=== PATIENT | female | born 1935 | race Caucasian/White ===

== ENCOUNTER 2019-11-03 19:15 | Inpatient (IN) | payer MEDICARE, BC ==
[2019-11-03] MEDS: Atorvastatin Calcium 40 MG TAB PO SCH (20:53)
[2019-11-03] MEDS: Carvedilol 25 MG TAB PO SCH (20:53)
[2019-11-03] MEDS: Lantus 1000 UNITS/10 ML VIAL SC SCH (20:53)
[2019-11-03] MEDS: Montelukast Sodium 10 mg Tablet PO SCH (20:54)
[2019-11-03] MEDS: Trospium 20 MG TAB PO SCH (20:54)
[2019-11-03] MEDS: Primidone 50 MG TAB PO SCH (20:54)
[2019-11-03 22:53] VITALS: BMI 39.4
[2019-11-04] MEDS: Budesonide 0.5 MG/2 ML NEB NEB SCH ×2 (05:22→18:29)
[2019-11-04 05:41] LABS: #Basophils 0.1 thou/uL (0.0-0.2); #Eosinphils 0.3 thou/uL (0.0-0.7); #Lymphocytes 2.1 thou/uL (1.20-3.40); #Monocytes 1.2 thou/uL (0.11-0.59); #Neutrophils 4.9 thou/uL (1.40-6.50); %Basophils 0.9 % (0.0-1.0); %Eosinophils 3.2 % (0.0-10.0); %Lymphocytes 24.7 % (21.0-51.0); %Monocytes 14.2 % (0.0-10.0); %Neutrophils 57.1 % (42.0-75.0); Hemoglobin 8.1 g/dL (12.0-16.0); Mean Corpuscular HGB CONC 30.9 g/dL (32.0-36.0); Mean Corpuscular Hemoglobin 28.5 pg (27.0-31.0); Mean Corpuscular Volume 92.3 fL (78.0-98.0); Mean Platelet Volume 6.5 fL (7.4-10.4); Platelet Count 260 thou/uL (130-400); RBC Distribution Width 15.7 % (11.5-14.5); Red Blood Cell (RBC) Count 2.84 mill/uL (4.20-5.40); White Blood Cell (WBC) Count 8.6 thou/uL (4.8-10.8)
[2019-11-04 05:57] LABS: Anion Gap 11 mmol/L (10-20); BUN (Urea Nitrogen) 20 mg/dL (9.8-20.1); Calc. Creatinine Clearance 65 mL/min (70-130); Calcium 8.9 mg/dL (7.8-10.44); Carbon Dioxide 30 mmol/L (23-31); Chloride 99 mmol/L (98-107); Estimated GFR-MDRD 47; Glucose 156 mg/dL (83-110); Potassium 5.3 mmol/L (3.5-5.1); Sodium 135 mmol/L (136-145)
[2019-11-04] MEDS: Trospium 20 MG TAB PO SCH ×2 (09:30→20:56)
[2019-11-04] MEDS: Multivitamin W/ Minerals 1 TAB PO SCH (09:30)
[2019-11-04] MEDS: Venlafaxine HCl XR 75 MG CAP PO SCH (09:30)
[2019-11-04] MEDS: Allopurinol 100 MG TAB PO SCH (09:31)
[2019-11-04] MEDS: Carvedilol 25 MG TAB PO SCH ×2 (09:31→20:57)
[2019-11-04] MEDS: Amlodipine 5 MG TAB PO SCH (09:31)
[2019-11-04] MEDS: Aspirin 81 mg Enteric Coated Tablet PO SCH (09:31)
[2019-11-04] MEDS: Lantus 1000 UNITS/10 ML VIAL SC SCH ×2 (09:32→20:55)
[2019-11-04] MEDS: Polyethylene Glycol 3350 17 GM Packet PO SCH (09:36)
[2019-11-04] MEDS ORDERED: Dextrose 50% Abboject 50 ML SYRINGE SLOW IVP PRN (18:35)
[2019-11-04] MEDS ORDERED: Dextrose 5% in Water 1,000 ML IV PRN (18:35)
--- NOTE | 2019-11-04 18:56 | PRG ---
DATE OF SERVICE: 11/04/[address] Hu Yeh. 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 Denies any problem sleeping, any cough, nausea, vomiting, diarrhea, constipation, or abdominal pain. OBJECTIVE: VITAL SIGNS: Show temperature of 98.4, pulse 62, respirations 16, O2 saturations 91% on 2 L, blood pressure 143/62. LUNGS: Clear. CARDIAC: Showed regular rhythm. ABDOMEN: Soft and nontender. NEUROLOGIC: Intact. LABORATORY DATA: Accu-Cheks ranged from 142 to 164. Sodium 135, potassium 5.3, chloride 99, bicarb 30, BUN 20, creatinine down to 1.1. White count 8600, hemoglobin down from 9 to 8.1. Creatinine, however, improved, 1.6 to 1.1 also. ASSESSMENT: 1. Improving deconditioning. 2. Stable hypoxemia status post pneumonia with no bronchospasm. 3. Type 2 diabetes, controlled to goal. 4. Chronic kidney disease with acute kidney injury superimposed, improving with creatinine down to 1.1 and GFR to 47. PLAN: 1. Add Brovana to budesonide twice daily, and continue to monitor oxygen saturation and hopefully wean off. 2. Continue PT/OT. 3. Continue Levemir and Accu-Cheks with mild sliding scale to monitor and titrate and control diabetes. 4. Continue to monitor vital signs with therapy, and continue cardiac medications. Job ID: [id number]
[2019-11-04] MEDS: Montelukast Sodium 10 mg Tablet PO SCH (20:56)
[2019-11-04] MEDS: Primidone 50 MG TAB PO SCH (20:56)
[2019-11-04] MEDS: Atorvastatin Calcium 40 MG TAB PO SCH (20:57)
--- NOTE | 2019-11-04 22:45 | HP ---
Patient of Dr. Hu Yeh. HISTORY OF PRESENT ILLNESS: The patient is an 84-year-old white female, recent patient of Dr. Calvert, who is now patient of Dr. Manzano, who was admitted to [facility] for pneumonia approximately 1 month ago, stayed there several days, was discharged to [facility] and then developed a bleeding ulcer requiring readmission to [facility] with endoscopy documenting duodenal ulcer and requiring cauterization. She subsequently was discharged back to [facility] this time after several days and there apparently was seen by the penitentiary physician, Dr. Amaya, who felt to require admission back to the hospital for recurrent pneumonia and then was discharged home at the patient's request. There, subsequently she was found unresponsive for the most recent admissions documented at [facility] on October 31, found to be severely hypoglycemic despite having eaten that night and taken her regular dose of insulin. She was also found to be in acute renal failure at that time, which was felt to be due to dehydration with no evidence of hydronephrosis as her creatinine had increased from 1.7 to 4.4. She was gently hydrated however, and her creatinine came back to baseline to 1.6, and she was felt to be stable to be transferred to rehab. However, she refused extensive rehab and agreed to go to [facility] for less intensive rehab. She was eating and drinking well. She was having no chest pain or shortness of breath. She does have significant arthritis in her knees, which is limiting her ability to ambulate, but she states that she was living alone at home and maintaining her lifestyle and ADLs. She does have a history of coronary artery disease, status post stents many years ago. Denies any chest pain, shortness of breath, or palpitations. She states that she has been checking her sugar at home and it has been normal on a regular dose of insulin. MEDICATIONS: At this time include; 1. Allopurinol 100 mg daily. 2. Amlodipine 2.5 mg daily. 3. Atorvastatin 40 nightly. 4. Carvedilol 25 twice daily. 5. Lantus 10 units twice daily. 6. Singulair 10 mg daily. 7. Protonix 40 mg twice daily. 8. Primidone 50 mg nightly. 9. Trospium 20 mg twice daily. 10. Venlafaxine 150 mg daily. 11. Vitamin D 2000 units daily. 12. Handheld nebulizer with budesonide twice daily. PAST MEDICAL HISTORY: Includes the above mentioned coronary artery disease. Hypertension. Hyperlipidemia. Gout. Recent history of pneumonia. Osteoarthritis. PAST SURGICAL HISTORY: Positive for hysterectomy. FAMILY HISTORY: Negative. SOCIAL HISTORY: As mentioned above. She lives alone. She is a nonsmoker, nondrinker. Walks with a walker. REVIEW OF SYSTEMS: HEENT: She denies headaches, dizziness, change in vision or hearing, hoarseness, or dysphagia. PULMONARY: Denies cough, or sputum production. Has recent pneumonia, but now has no cough. She has been found however to be hypoxic since her admission for pneumonia and now is on chronic 1-2 L of oxygen. CARDIOVASCULAR: She denies chest pain, orthopnea, paroxysmal nocturnal dyspnea, or edema. GASTROINTESTINAL: She denies nausea, vomiting, diarrhea, constipation, or abdominal pain. She does have the above-mentioned history of asymptomatic bleeding ulcer with melena requiring 3 units of packed cells and cauterization. GENITOURINARY: Denies dysuria, hematuria, or nocturia. MUSCULOSKELETAL: Complains of pain in her knees as mentioned above. NEUROLOGIC: Denies localized numbness or tingling to arms or extremities. PHYSICAL EXAMINATION: GENERAL: The patient is an elderly obese white female, lying in bed, alert and oriented, no distress, fair historian, cannot remember her medications. VITAL SIGNS: Showed to have a temperature of 98, pulse 90, respiration 19, O2 sats 91% on 2.5 L. HEENT: Pupils are equal, round, and reactive to light and accommodation. Sclerae anicteric. Conjunctivae pale. Oral mucous membranes well hydrated. NECK: Supple. There are no nodes or masses. JVP is not elevated. LUNGS: Clear. Decreased breath sounds at bases. CARDIAC: Shows regular rhythm. No gallops or murmurs. ABDOMEN: Obese and nontender with no masses or organomegaly. SKIN/EXTREMITIES: Display no edema, clubbing, or cyanosis. NEUROLOGICAL: Shows no focal findings. LABORATORY DATA: Recently showed a white count of 7800, hematocrit 28, hemoglobin 9. Sodium 135, potassium 4.9, chloride 101, bicarb 25, BUN 32, creatinine 1.62, calcium 8.5. ASSESSMENT: The patient is an 84-year-old white female with; 1. History of deconditioning, status post multiple admissions to the hospital with inability to maintain ADLs and persistent hypoxemia that reported previously. 2. She has history also of coronary artery disease, asymptomatic. 3. Type 2 diabetes with a history of adequate control, but apparently only minimal to moderate control in the hospital. 4. Osteoarthritis of both knees limiting activity. 5. Gout, controlled on medications. 6. Hyperlipidemia, stable. 7. Anxiety and depression, stable. PLAN: Restart home medications. Continue O2 to maintain sats at 93%. Continue Accu-Cheks to monitor and titrate and control diabetes. Start PT and OT. Repeat labs in the a.m. Job ID: [id number]
[2019-11-05] MEDS: Arformoterol 15 MCG/2 ML NEB NEB SCH ×2 (05:08→17:54)
[2019-11-05] MEDS: Budesonide 0.5 MG/2 ML NEB NEB SCH ×2 (05:08→18:16)
[2019-11-05 05:53] LABS: Anion Gap 15 mmol/L (10-20); BUN (Urea Nitrogen) 17 mg/dL (9.8-20.1); Calc. Creatinine Clearance 65 mL/min (70-130); Calcium 8.8 mg/dL (7.8-10.44); Carbon Dioxide 27 mmol/L (23-31); Chloride 98 mmol/L (98-107); Estimated GFR-MDRD 47; Glucose 129 mg/dL (83-110); Potassium 4.7 mmol/L (3.5-5.1); Sodium 135 mmol/L (136-145)
[2019-11-05] MEDS: Venlafaxine HCl XR 75 MG CAP PO SCH (09:20)
[2019-11-05] MEDS: Multivitamin W/ Minerals 1 TAB PO SCH (09:20)
[2019-11-05] MEDS: Aspirin 81 mg Enteric Coated Tablet PO SCH (09:20)
[2019-11-05] MEDS: Allopurinol 100 MG TAB PO SCH (09:20)
[2019-11-05] MEDS: Amlodipine 5 MG TAB PO SCH (09:21)
[2019-11-05] MEDS: Carvedilol 25 MG TAB PO SCH ×2 (09:21→20:40)
[2019-11-05] MEDS: Trospium 20 MG TAB PO SCH ×2 (09:22→20:41)
[2019-11-05] MEDS: Polyethylene Glycol 3350 17 GM Packet PO SCH (09:23)
[2019-11-05] MEDS: Lantus 1000 UNITS/10 ML VIAL SC SCH ×2 (09:28→20:42)
[2019-11-05] MEDS: Atorvastatin Calcium 40 MG TAB PO SCH (20:40)
[2019-11-05] MEDS: Montelukast Sodium 10 mg Tablet PO SCH (20:40)
[2019-11-05] MEDS: Primidone 50 MG TAB PO SCH (20:41)
--- NOTE | 2019-11-05 22:11 | PRG ---
DATE OF SERVICE: 11/05/2019 SUBJECTIVE: The patient feels well, lying in the bed. Has had minimal therapy today, but has no dyspnea at rest. No chest pain. No shortness of breath. OBJECTIVE: VITAL SIGNS: Temperature is 96.2, pulse 75, respirations 24, O2 sats 94% on 2.5 L, blood pressure 173/76. ASSESSMENT: 1. Resolving urinary tract infection, metabolic encephalopathy. 2. Stable type 2 diabetes. 3. Severe deconditioning. 4. Resolved peptic ulcer disease. 5. Chronic diastolic heart failure. 6. Chronic kidney disease. Acute kidney injury superimposed, now back to baseline. PLAN: 1. Continue PT/OT. 2. Continue Accu-Cheks to monitor and titrate and control diabetes. 3. Continue budesonide, Brovana. 4. Continue PT/OT. 5. Continue Levemir and Accu-Cheks, mild sliding scale. 6. Review labs and therapy notes. Job ID: [id number]
[2019-11-06] MEDS: HumaLOG 300 UNITS/3 ML VIAL SC PRN (00:19)
[2019-11-06] MEDS: Arformoterol 15 MCG/2 ML NEB NEB SCH ×2 (05:41→18:09)
[2019-11-06] MEDS: Budesonide 0.5 MG/2 ML NEB NEB SCH ×2 (05:42→18:09)
[2019-11-06] MEDS: Venlafaxine HCl XR 75 MG CAP PO SCH (10:00)
[2019-11-06] MEDS: Amlodipine 5 MG TAB PO SCH (10:00)
[2019-11-06] MEDS: Allopurinol 100 MG TAB PO SCH (10:00)
[2019-11-06] MEDS: Trospium 20 MG TAB PO SCH ×2 (10:01→20:19)
[2019-11-06] MEDS: Carvedilol 25 MG TAB PO SCH ×2 (10:01→20:18)
[2019-11-06] MEDS: Aspirin 81 mg Enteric Coated Tablet PO SCH (10:01)
[2019-11-06] MEDS: Polyethylene Glycol 3350 17 GM Packet PO SCH (10:02)
[2019-11-06] MEDS: Lantus 1000 UNITS/10 ML VIAL SC SCH ×2 (10:02→20:18)
[2019-11-06] MEDS: Multivitamin W/ Minerals 1 TAB PO SCH (10:02)
[2019-11-06] MEDS: cloNIDine 0.1 MG TAB PO PRN ×2 (13:54→20:20)
--- NOTE | 2019-11-06 15:13 | PRG ---
DATE OF SERVICE: 11/06/2019 SUBJECTIVE: Ms. Browning is resting in bed and is getting her nebulizer treatment. Her blood pressure apparently was high this morning, and I ordered some p.r.n. clonidine. She denies any headaches or blurred vision. She has been working with therapy. She states her breathing is stable. Denies any fever or chills. OBJECTIVE: VITAL SIGNS: She is afebrile. Heart rate 77, respirations 18, oxygen saturation is 95% on 2 L, and blood pressure was 177/80. CARDIOVASCULAR SYSTEM: S1 and S2 plus. RESPIRATORY SYSTEM: Normal vesicular breath sounds. ABDOMEN: Soft, obese, nontender. Bowel sounds heard in all quadrants. EXTREMITIES: Without cyanosis or clubbing. Trace edema. CENTRAL NERVOUS SYSTEM: Generalized weakness. LABORATORY DATA: Blood sugars are 138, 118, 152, and 121. IMPRESSION: 1. Resolving pneumonitis. 2. Morbid obesity. 3. Resolving acute renal failure. 4. Hypertension. 5. Dyslipidemia. 6. Diabetes mellitus, type 2. 7. Deconditioning. 8. Peptic ulcer disease. 9. Depression. 10. Anxiety. 11. Coronary artery disease. PLAN: 1. Continue current medications. 2. 1800 calorie heart-healthy ADA diet. 3. Accu-Cheks with sliding scale coverage. 4. Monitor blood pressure and adjust medications as needed. 5. Clonidine 0.1 mg p.o. q.6 p.r.n. for systolic blood pressure greater than 160 or diastolic greater than 90. 6. Decubitus precautions. 7. Stress ulcer prophylaxis. She is on Protonix. 8. PlexiPulses for DVT prophylaxis. 9. Monitor respiratory status and breathing treatments as needed. 10. Routine laboratory values. 11. Discussed with the patient in detail. All questions answered. Job ID: [id number]
[2019-11-06] MEDS ORDERED: Amlodipine 5 MG TAB PO SCH (16:30)
[2019-11-06] MEDS: Atorvastatin Calcium 40 MG TAB PO SCH (20:18)
[2019-11-06] MEDS: Montelukast Sodium 10 mg Tablet PO SCH (20:19)
[2019-11-06] MEDS: Primidone 50 MG TAB PO SCH (20:19)
[2019-11-07] MEDS: Budesonide 0.5 MG/2 ML NEB NEB SCH ×2 (05:56→18:35)
[2019-11-07] MEDS: Arformoterol 15 MCG/2 ML NEB NEB SCH ×2 (05:56→18:36)
[2019-11-07] MEDS: Multivitamin W/ Minerals 1 TAB PO SCH (08:40)
[2019-11-07] MEDS: Carvedilol 25 MG TAB PO SCH ×2 (08:41→21:04)
[2019-11-07] MEDS: Venlafaxine HCl XR 75 MG CAP PO SCH (08:41)
[2019-11-07] MEDS: Trospium 20 MG TAB PO SCH ×2 (08:41→21:04)
[2019-11-07] MEDS: Aspirin 81 mg Enteric Coated Tablet PO SCH (08:41)
[2019-11-07] MEDS: Allopurinol 100 MG TAB PO SCH (08:41)
[2019-11-07] MEDS: Lantus 1000 UNITS/10 ML VIAL SC SCH ×2 (08:42→21:02)
[2019-11-07] MEDS ORDERED: Amlodipine 5 MG TAB PO SCH (09:00)
[2019-11-07] MEDS: Polyethylene Glycol 3350 17 GM Packet PO SCH (09:23)
--- NOTE | 2019-11-07 14:15 | PRG ---
DATE OF SERVICE: 11/07/2019 SUBJECTIVE: Ms. Browning is doing the same. Denies any complaints. Resting comfortably. Tolerating her amlodipine. Blood pressure continues to remain high, but she is getting the amlodipine at 9 in the morning and they are checking her blood pressure at 8 and checked once a day. I advised them to move the amlodipine to 9 p.m. and have started her on lisinopril 20 in the morning and to check her blood pressure 3 times daily. OBJECTIVE: VITAL SIGNS: She is afebrile. Heart rate 73, respirations 20, oxygen saturation 90% on 2.5 L. CARDIOVASCULAR: S1, S2 plus. RESPIRATORY: Normal vesicular breath sounds. ABDOMEN: Soft, nontender. Bowel sounds heard in all quadrants. EXTREMITIES: Without cyanosis or clubbing. Trace edema. CENTRAL NERVOUS SYSTEM: Generalized weakness. IMPRESSION: 1. Resolving pneumonitis. 2. Possible reactive airway disease. 3. Hypertension. 4. Coronary artery disease, status post stent placement. 5. Resolved acute renal failure. 6. Deconditioning. 7. Obesity. PLAN: 1. Continue current medications and add lisinopril 10 mg in the morning. Remove amlodipine at nighttime. 2. Heart healthy diet. 3. Titrate oxygen as tolerated. 4. Breathing treatments. 5. Physical therapy. 6. PlexiPulses. 7. Stress ulcer prophylaxis. 8. Routine laboratory values. 9. Discussed with the patient and nursing in detail. All questions answered. Job ID: [id number]
[2019-11-07] MEDS: Primidone 50 MG TAB PO SCH (21:04)
[2019-11-07] MEDS: Montelukast Sodium 10 mg Tablet PO SCH (21:04)
[2019-11-07] MEDS: Amlodipine 5 MG TAB PO SCH (21:04)
[2019-11-07] MEDS: Atorvastatin Calcium 40 MG TAB PO SCH (21:04)
[2019-11-08] MEDS: Budesonide 0.5 MG/2 ML NEB NEB SCH ×2 (05:43→17:32)
[2019-11-08] MEDS: Arformoterol 15 MCG/2 ML NEB NEB SCH ×2 (05:43→17:32)
[2019-11-08] MEDS: Polyethylene Glycol 3350 17 GM Packet PO SCH (08:22)
[2019-11-08] MEDS: Lisinopril 10 MG TAB PO SCH (08:23)
[2019-11-08] MEDS: Trospium 20 MG TAB PO SCH ×2 (08:24→20:35)
[2019-11-08] MEDS: Venlafaxine HCl XR 75 MG CAP PO SCH (08:24)
[2019-11-08] MEDS: Multivitamin W/ Minerals 1 TAB PO SCH (08:24)
[2019-11-08] MEDS: Carvedilol 25 MG TAB PO SCH ×2 (08:24→20:35)
[2019-11-08] MEDS: Lantus 1000 UNITS/10 ML VIAL SC SCH ×2 (08:25→20:34)
[2019-11-08] MEDS: Aspirin 81 mg Enteric Coated Tablet PO SCH (08:25)
[2019-11-08] MEDS: Allopurinol 100 MG TAB PO SCH (08:25)
--- NOTE | 2019-11-08 12:48 | PRG ---
DATE OF SERVICE: 11/08/2019 SUBJECTIVE: Ms. Browning is up in her chair doing breathing treatment. Her blood pressure is much improved. She is tolerating therapy. Discussed with nursing. Had no concerns. I advised her to start using her incentive spirometry every hour to see if we can get her off the oxygen. No family at bedside. OBJECTIVE: VITAL SIGNS: She is afebrile. Heart rate 75, respirations 18, oxygen saturation 93% on 2 L, blood pressure 150/64. CARDIOVASCULAR: S1 and S2 plus. RESPIRATORY: Normal vesicular breath sounds. ABDOMEN: Soft, obese, and nontender. Bowel sounds heard in all quadrants. EXTREMITIES: Without cyanosis or clubbing. Trace edema. CENTRAL NERVOUS SYSTEM: Generalized weakness. Otherwise, nonfocal. LABORATORY DATA: Blood sugars are 149, 113, 106, 138, 116, and 138. IMPRESSION: 1. Hypertension, much improved. 2. Acute hypoxemic respiratory failure. 3. Resolving pneumonitis. 4. Diabetes mellitus, type 2. 5. Morbid obesity. 6. Deconditioning. 7. Coronary artery disease with history of stent placement. PLAN: 1. Continue current medication. 2. 1800-calorie heart-healthy ADA. 3. Accu-Cheks with sliding scale coverage. 4. Monitor blood pressure and adjust medications as needed. 5. Titrate oxygen as tolerated. 6. Monitor respiratory status. 7. Physical therapy. 8. Routine laboratory values. Job ID: [id number]
[2019-11-08] MEDS: Acetaminophen 500 MG TAB PO PRN (14:52)
[2019-11-08] MEDS: Montelukast Sodium 10 mg Tablet PO SCH (20:35)
[2019-11-08] MEDS: Primidone 50 MG TAB PO SCH (20:35)
[2019-11-08] MEDS: Amlodipine 5 MG TAB PO SCH (20:36)
[2019-11-08] MEDS: Atorvastatin Calcium 40 MG TAB PO SCH (20:36)
[2019-11-09] MEDS: Arformoterol 15 MCG/2 ML NEB NEB SCH ×2 (05:25→17:37)
[2019-11-09 05:26] LABS: #Eosinphils 0.3 thou/uL (0.0-0.7); #Lymphocytes 2.4 thou/uL (1.20-3.40); #Monocytes 0.9 thou/uL (0.11-0.59); %Basophils 0.7 % (0.0-1.0); %Eosinophils 4.6 % (0.0-10.0); %Lymphocytes 35.5 % (21.0-51.0); %Monocytes 13.8 % (0.0-10.0); %Neutrophils 45.4 % (42.0-75.0); Hemoglobin 8.4 g/dL (12.0-16.0); Mean Corpuscular HGB CONC 31.4 g/dL (32.0-36.0); Mean Corpuscular Hemoglobin 28.4 pg (27.0-31.0); Mean Corpuscular Volume 90.3 fL (78.0-98.0); Mean Platelet Volume 6.8 fL (7.4-10.4); Platelet Count 352 thou/uL (130-400); RBC Distribution Width 15.5 % (11.5-14.5); Red Blood Cell (RBC) Count 2.94 mill/uL (4.20-5.40); White Blood Cell (WBC) Count 6.6 thou/uL (4.8-10.8)
[2019-11-09] MEDS: Budesonide 0.5 MG/2 ML NEB NEB SCH ×2 (05:26→17:36)
[2019-11-09 05:41] LABS: Anion Gap 14 mmol/L (10-20); BUN (Urea Nitrogen) 16 mg/dL (9.8-20.1); Calc. Creatinine Clearance 68 mL/min (70-130); Calcium 8.8 mg/dL (7.8-10.44); Carbon Dioxide 28 mmol/L (23-31); Chloride 97 mmol/L (98-107); Estimated GFR-MDRD 49; Glucose 117 mg/dL (83-110); Potassium 4.1 mmol/L (3.5-5.1); Sodium 135 mmol/L (136-145)
[2019-11-09] MEDS: Venlafaxine HCl XR 75 MG CAP PO SCH (07:58)
[2019-11-09] MEDS: Trospium 20 MG TAB PO SCH ×2 (07:59→21:26)
[2019-11-09] MEDS: Multivitamin W/ Minerals 1 TAB PO SCH (07:59)
[2019-11-09] MEDS: Aspirin 81 mg Enteric Coated Tablet PO SCH (07:59)
[2019-11-09] MEDS: Allopurinol 100 MG TAB PO SCH (07:59)
[2019-11-09] MEDS: Carvedilol 25 MG TAB PO SCH ×2 (07:59→21:25)
[2019-11-09] MEDS: Lisinopril 10 MG TAB PO SCH (07:59)
[2019-11-09] MEDS: Lantus 1000 UNITS/10 ML VIAL SC SCH ×2 (08:00→21:27)
[2019-11-09] MEDS: Polyethylene Glycol 3350 17 GM Packet PO SCH (08:00)
--- NOTE | 2019-11-09 13:12 | PRG ---
DATE OF SERVICE: 11/09/2019 SUBJECTIVE: Ms. Browning is doing the same. She is up in her chair, and she apparently has been using her incentive spirometer, but is able to 700 mL. She is still having fluctuating blood pressure, but that is more with exertion. She is now on 3 L of oxygen. PHYSICAL EXAMINATION: VITAL SIGNS: Blood pressure after her medicines is 147/76, pulse 71, and respirations 18. CARDIOVASCULAR SYSTEM: S1 and S2 plus. RESPIRATORY SYSTEM: Normal vesicular breath sounds. ABDOMEN: Soft, obese, nontender. Bowel sounds heard in all quadrants. EXTREMITIES: Without cyanosis or clubbing. CENTRAL NERVOUS SYSTEM: Awake and responsive. Grossly nonfocal. LABORATORY VALUES: Sodium 135, potassium 4.1, BUN and creatinine 16 and 1.06. Blood sugars are 138, 125, 155, 117, and 140. BNP is normal at 89.5. White count is 6.6, H and H are 8.4 and 26.6. IMPRESSION: 1. Acute hypoxemic respiratory failure. 2. Improving pneumonitis. 3. Morbid obesity. 4. Possible obesity hypoventilation. 5. Diabetes mellitus, type 2. 6. Coronary artery disease. 7. Deconditioning. PLAN: 1. Continue current medications. 2. 1800-calorie heart healthy ADA diet. 3. Accu-Cheks with sliding scale coverage. 4. Reinforced complaints with incentive spirometry. 5. Continue to monitor blood pressure and adjust medications. 6. Physical Therapy. 7. Routine laboratory values. 8. Discussed with nursing and patient. All questions answered. Job ID: [id number] MTDD
[2019-11-09] MEDS: Primidone 50 MG TAB PO SCH (21:25)
[2019-11-09] MEDS: Amlodipine 5 MG TAB PO SCH (21:26)
[2019-11-09] MEDS: Montelukast Sodium 10 mg Tablet PO SCH (21:26)
[2019-11-09] MEDS: Atorvastatin Calcium 40 MG TAB PO SCH (21:28)
[2019-11-10] MEDS: Arformoterol 15 MCG/2 ML NEB NEB SCH ×2 (06:26→17:56)
[2019-11-10] MEDS: Budesonide 0.5 MG/2 ML NEB NEB SCH ×2 (06:26→17:58)
--- NOTE | 2019-11-10 08:54 | PRG ---
DATE OF SERVICE: 11/10/2019 SUBJECTIVE: Ms. Browning is doing the same, denies any complaints, staying compliant with her incentive spirometry per nursing. She is tolerating therapy. OBJECTIVE: VITAL SIGNS: She is afebrile, heart rate 72, respirations 18, oxygen saturation 93% on 3 L, and blood pressure 141/59. CARDIOVASCULAR: S1 and S2 plus. RESPIRATORY: Normal vesicular breath sounds. ABDOMEN: Soft and nontender. Obese. Bowel sounds heard in all quadrants. EXTREMITIES: Without cyanosis or clubbing. Trace edema. CENTRAL NERVOUS SYSTEM: Generalized weakness, otherwise nonfocal. IMPRESSION: 1. Resolving pneumonitis. 2. Acute hypoxemic respiratory failure. 3. Morbid obesity. 4. Diabetes mellitus type 2. 5. Coronary artery disease. 6. Hypertension, much improved. 7. Improving deconditioning. PLAN: 1. Continue current medications. 2. 1800 calorie heart healthy ADA diet. 3. Accu-Chek with sliding scale coverage. 4. DVT prophylaxis with PlexiPulse. 5. Decubitus precautions. 6. Stress ulcer prophylaxis. 7. Reinforced compliance with incentive spirometry and titrate oxygen as tolerated. Job ID: [id number]
[2019-11-10] MEDS: Venlafaxine HCl XR 75 MG CAP PO SCH (09:04)
[2019-11-10] MEDS: Carvedilol 25 MG TAB PO SCH ×2 (09:04→20:36)
[2019-11-10] MEDS: Multivitamin W/ Minerals 1 TAB PO SCH (09:05)
[2019-11-10] MEDS: Trospium 20 MG TAB PO SCH ×2 (09:05→20:36)
[2019-11-10] MEDS: Allopurinol 100 MG TAB PO SCH (09:05)
[2019-11-10] MEDS: Lantus 1000 UNITS/10 ML VIAL SC SCH ×2 (09:05→20:45)
[2019-11-10] MEDS: Aspirin 81 mg Enteric Coated Tablet PO SCH (09:05)
[2019-11-10] MEDS: Lisinopril 10 MG TAB PO SCH (09:06)
[2019-11-10] MEDS: Polyethylene Glycol 3350 17 GM Packet PO SCH (09:12)
[2019-11-10] MEDS: Atorvastatin Calcium 40 MG TAB PO SCH (20:36)
[2019-11-10] MEDS: Montelukast Sodium 10 mg Tablet PO SCH (20:36)
[2019-11-10] MEDS: Primidone 50 MG TAB PO SCH (20:36)
[2019-11-10] MEDS: Amlodipine 5 MG TAB PO SCH (20:36)
[2019-11-11] MEDS: Arformoterol 15 MCG/2 ML NEB NEB SCH ×2 (05:32→18:11)
[2019-11-11] MEDS: Budesonide 0.5 MG/2 ML NEB NEB SCH ×2 (05:50→18:11)
[2019-11-11] MEDS: Carvedilol 25 MG TAB PO SCH ×2 (09:11→20:45)
[2019-11-11] MEDS: Trospium 20 MG TAB PO SCH ×2 (09:11→20:45)
[2019-11-11] MEDS: Venlafaxine HCl XR 75 MG CAP PO SCH (09:11)
[2019-11-11] MEDS: Lantus 1000 UNITS/10 ML VIAL SC SCH ×2 (09:11→20:46)
[2019-11-11] MEDS: Allopurinol 100 MG TAB PO SCH (09:12)
[2019-11-11] MEDS: Lisinopril 10 MG TAB PO SCH (09:12)
[2019-11-11] MEDS: Aspirin 81 mg Enteric Coated Tablet PO SCH (09:12)
[2019-11-11] MEDS: Polyethylene Glycol 3350 17 GM Packet PO SCH (09:12)
[2019-11-11] MEDS: Multivitamin W/ Minerals 1 TAB PO SCH (09:12)
[2019-11-11] MEDS ORDERED: Lisinopril 10 MG TAB PO SCH (15:00)
--- NOTE | 2019-11-11 20:18 | PRG ---
DATE OF SERVICE: 11/11/2019 SUBJECTIVE: Ms. Browning is up in her chair and just had her hair and nails done. She apparently still having episodes of spike in her blood pressure, which is limiting Therapy working with her. I am going to leave a note for Therapy to tell them to continue working with her or give her about 30-second rest and then start working with her again, because I think her spike in blood pressure is more due to deconditioning. I will also increase her lisinopril today and then possibly her amlodipine tomorrow. I had a long discussion with her daughter, Jessica, over the telephone and all questions answered. OBJECTIVE: VITAL SIGNS: The patient is afebrile, heart rate 72, respirations 20, oxygen saturation 96% on 3 L, and blood pressure 165/70. CARDIOVASCULAR: S1 and S2 plus. RESPIRATORY: Normal vesicular breath sounds. ABDOMEN: Soft, obese, nontender. Bowel sounds heard in all quadrants. EXTREMITIES: Without cyanosis or clubbing. Trace edema. CENTRAL NERVOUS SYSTEM: Awake and responsive, generalized weakness. LABORATORY DATA: Blood sugars are 117, 175, 164, 131, and 127. IMPRESSION: 1. Resolving pneumonitis. 2. Acute hypoxemic respiratory failure. 3. History of sleep apnea. Daughter states that patient had a sleep study and was told she has sleep apnea, but did not get the CPAP. 4. Hypertension. 5. Deconditioning. 6. Diabetes mellitus, type 2. PLAN: 1. 1800 calorie heart healthy ADA diet. 2. Accu-Cheks with sliding scale coverage. 3. Monitor blood pressure and adjust medications. 4. Increase lisinopril to 20 daily. 5. Physical therapy. 6. Monitor heart rate and rhythm. 7. Discuss with patient and nursing as well as daughter in detail. Job ID: [id number]
[2019-11-11] MEDS: Amlodipine 5 MG TAB PO SCH (20:44)
[2019-11-11] MEDS: Atorvastatin Calcium 40 MG TAB PO SCH (20:44)
[2019-11-11] MEDS: Montelukast Sodium 10 mg Tablet PO SCH (20:45)
[2019-11-11] MEDS: Primidone 50 MG TAB PO SCH (20:45)
[2019-11-12] MEDS: Budesonide 0.5 MG/2 ML NEB NEB SCH ×2 (05:46→17:37)
[2019-11-12] MEDS: Arformoterol 15 MCG/2 ML NEB NEB SCH ×2 (05:46→17:37)
[2019-11-12] MEDS ORDERED: Lisinopril 10 MG TAB PO SCH (09:00)
[2019-11-12] MEDS: Venlafaxine HCl XR 75 MG CAP PO SCH (09:12)
[2019-11-12] MEDS: Aspirin 81 mg Enteric Coated Tablet PO SCH (09:13)
[2019-11-12] MEDS: Trospium 20 MG TAB PO SCH ×2 (09:13→21:24)
[2019-11-12] MEDS: Multivitamin W/ Minerals 1 TAB PO SCH (09:13)
[2019-11-12] MEDS: Polyethylene Glycol 3350 17 GM Packet PO SCH (09:13)
[2019-11-12] MEDS: Carvedilol 25 MG TAB PO SCH ×2 (09:13→21:22)
[2019-11-12] MEDS: Lantus 1000 UNITS/10 ML VIAL SC SCH ×2 (09:13→21:22)
[2019-11-12] MEDS: Allopurinol 100 MG TAB PO SCH (09:13)
[2019-11-12] MEDS ORDERED: Amlodipine 5 MG TAB PO SCH (14:40)
--- NOTE | 2019-11-12 15:40 | PRG ---
DATE OF SERVICE: 11/12/2019 SUBJECTIVE: Ms. Browning apparently went around the nurse's station with rolling her wheelchair. Her family is with her. Encouraged her to do more. Adjusting her blood pressure medicines. OBJECTIVE: VITAL SIGNS: This morning, her pulse was 72, respirations 20, oxygen saturation 96% on 3 L. Blood pressure was 179/78, but after her medicines, it was 165/70. CARDIOVASCULAR SYSTEM: S1 and S2 plus. RESPIRATORY SYSTEM: Normal vesicular breath sounds. ABDOMEN: Soft, nontender, obese. Bowel sounds heard in all quadrants. EXTREMITIES: Without cyanosis or clubbing. CENTRAL NERVOUS SYSTEM: Awake and responsive. Generalized weakness, otherwise nonfocal. IMPRESSION: 1. Resolving pneumonitis. 2. Possible obstructive sleep apnea. 3. Hypertension. 4. Acute hypoxemic respiratory failure. 5. Deconditioning. 6. Diabetes mellitus, type 2. PLAN: 1. Increase amlodipine to 10 mg at night. 2. Continue other medications. 3. 1800-calorie heart-healthy ADA diet. 4. Accu-Cheks with sliding scale coverage. 5. Outpatient sleep study. 6. Physical therapy. 7. Discussed with the patient and family in detail and all questions answered. Job ID: [id number]
[2019-11-12] MEDS: Amlodipine 5 MG TAB PO SCH (21:21)
[2019-11-12] MEDS: Montelukast Sodium 10 mg Tablet PO SCH (21:21)
[2019-11-12] MEDS: Atorvastatin Calcium 40 MG TAB PO SCH (21:22)
[2019-11-12] MEDS: Primidone 50 MG TAB PO SCH (21:24)
[2019-11-12] MEDS ORDERED: diphenhydrAMINE 25 MG CAP PO SCH (21:30)
[2019-11-12] MEDS: Hydrocortisone 1% Cream 30 GM TUBE TOP PRN (21:45)
[2019-11-13] MEDS ORDERED: Budesonide 0.25 MG/2 ML NEB ONE (05:26)
[2019-11-13] MEDS ORDERED: Budesonide 0.5 MG/2 ML NEB ONE (05:27)
[2019-11-13] MEDS: Budesonide 0.5 MG/2 ML NEB NEB SCH ×2 (05:54→18:15)
[2019-11-13] MEDS: Lisinopril 10 MG TAB PO SCH (05:54)
[2019-11-13] MEDS: Arformoterol 15 MCG/2 ML NEB NEB SCH ×2 (05:55→18:30)
[2019-11-13] MEDS: Multivitamin W/ Minerals 1 TAB PO SCH (09:29)
[2019-11-13] MEDS: Allopurinol 100 MG TAB PO SCH (09:29)
[2019-11-13] MEDS: Aspirin 81 mg Enteric Coated Tablet PO SCH (09:30)
[2019-11-13] MEDS: Trospium 20 MG TAB PO SCH ×2 (09:30→20:58)
[2019-11-13] MEDS: Venlafaxine HCl XR 75 MG CAP PO SCH (09:30)
[2019-11-13] MEDS: Carvedilol 25 MG TAB PO SCH ×2 (09:31→20:58)
[2019-11-13] MEDS: Lantus 1000 UNITS/10 ML VIAL SC SCH ×2 (09:33→20:53)
[2019-11-13] MEDS: Polyethylene Glycol 3350 17 GM Packet PO SCH (09:35)
[2019-11-13] MEDS: Hydrocortisone 1% Cream 30 GM TUBE TOP PRN ×2 (11:55→20:53)
--- NOTE | 2019-11-13 14:26 | PRG ---
DATE OF SERVICE: 11/13/2019 SUBJECTIVE: Ms. Browning is doing well. She is down to 2 L of oxygen. Advised nursing to continue to titrate it down as long as her room air saturation is greater than 92%. The patient states that she is doing reasonably well with therapy, and her limiting factor is mainly her knee pain. She is having some BP spike, but I think that is more related to her deconditioning and her pain rather than a primary cardiovascular issue. She does have apparently sleep apnea, which has not been treated, and family is going to arrange for outpatient sleep study. Discussed with therapy, and they state she is able to walk 100 feet without stopping to rest and then after rest, she is able to walk another 100 feet, and they state that probably in the next couple of days, she should be ready to go home. She does live home alone, and the patient states that she had [facility] and so, we will make sure Case Management refers the patient. She has a followup appointment with her PCP on , and she is hoping she can make it. OBJECTIVE: VITAL SIGNS: She is afebrile, heart rate 76, respirations 20, oxygen saturation 94% on 2 L, and blood pressure 145/65. CARDIOVASCULAR SYSTEM: S1 and S2 plus. RESPIRATORY SYSTEM: Normal vesicular breath sounds. ABDOMEN: Soft, obese, nontender. Bowel sounds heard in all quadrants. EXTREMITIES: Without cyanosis or clubbing. Trace edema. DJD to knee. CENTRAL NERVOUS SYSTEM: Improving deconditioning. LABORATORY DATA: Blood sugars are 128, 184, 127, and 131. IMPRESSION: 1. Resolved pneumonitis. 2. Acute hypoxemic respiratory failure, improving. 3. Significant deconditioning with slow improvement. 4. Hypertension. 5. Osteoarthritis. 6. Diabetes mellitus, type 2. PLAN: 1. Continue current medications. 2. Monitor blood pressure. 3. Heart healthy, ADA diet. 4. Accu-Cheks with sliding scale coverage. 5. Titrate oxygen. 6. Physical therapy. 7. Discharge planning. Job ID: [id number]
[2019-11-13] MEDS: Amlodipine 5 MG TAB PO SCH (20:57)
[2019-11-13] MEDS: Atorvastatin Calcium 40 MG TAB PO SCH (20:57)
[2019-11-13] MEDS: Primidone 50 MG TAB PO SCH (20:57)
[2019-11-13] MEDS: Montelukast Sodium 10 mg Tablet PO SCH (20:58)
[2019-11-14] MEDS: Lisinopril 10 MG TAB PO SCH (05:31)
[2019-11-14] MEDS: Arformoterol 15 MCG/2 ML NEB NEB SCH ×2 (05:32→17:34)
[2019-11-14] MEDS: Budesonide 0.5 MG/2 ML NEB NEB SCH ×2 (05:34→17:34)
[2019-11-14] MEDS: Allopurinol 100 MG TAB PO SCH (08:37)
[2019-11-14] MEDS: Aspirin 81 mg Enteric Coated Tablet PO SCH (08:37)
[2019-11-14] MEDS: Multivitamin W/ Minerals 1 TAB PO SCH (08:37)
[2019-11-14] MEDS: Venlafaxine HCl XR 75 MG CAP PO SCH (08:37)
[2019-11-14] MEDS: Carvedilol 25 MG TAB PO SCH ×2 (08:37→21:06)
[2019-11-14] MEDS: Trospium 20 MG TAB PO SCH ×2 (08:37→21:06)
[2019-11-14] MEDS: Lantus 1000 UNITS/10 ML VIAL SC SCH ×2 (08:38→21:08)
[2019-11-14] MEDS: Polyethylene Glycol 3350 17 GM Packet PO SCH (08:40)
--- NOTE | 2019-11-14 14:13 | PRG ---
DATE OF SERVICE: 11/14/2019 SUBJECTIVE: Ms. Browning has been off her oxygen. She is seen on her way to her case conference. Discussed with therapy and they state that the patient should be ready to go in the next day or two. The patient apparently had [facility] and I have already consulted Case Management. Family was supposed to come to the case conference, but nursing states that no one has showed up. nursing program coordinator was supposed to inform them. OBJECTIVE: VITAL SIGNS: She is afebrile, heart rate 74, respirations 18, oxygen saturation 92%, and blood pressure 135/63. CARDIOVASCULAR SYSTEM: S1 and S2 plus. RESPIRATORY SYSTEM: Normal vesicular breath sounds. ABDOMEN: Soft and nontender. Bowel sounds heard in all quadrants. EXTREMITIES: Without cyanosis or clubbing. DJD knees. CENTRAL NERVOUS SYSTEM: Improving deconditioning. IMPRESSION: 1. Resolved pneumonitis. 2. Resolved acute hypoxemic respiratory failure. 3. Osteoarthritis. 4. Improving deconditioning. 5. Hypertension, better controlled. PLAN: 1. Continue current medications. 2. Heart healthy diet. 3. DVT prophylaxis. 4. Physical therapy. 5. Discharge planning. 6. Anticipate discharge on . Discussed with the patient. No family at bedside. Job ID: [id number]
[2019-11-14] MEDS: HumaLOG 300 UNITS/3 ML VIAL SC PRN (17:35)
[2019-11-14] MEDS: Primidone 50 MG TAB PO SCH (21:06)
[2019-11-14] MEDS: Amlodipine 5 MG TAB PO SCH (21:06)
[2019-11-14] MEDS: Atorvastatin Calcium 40 MG TAB PO SCH (21:06)
[2019-11-14] MEDS: Montelukast Sodium 10 mg Tablet PO SCH (21:06)
[2019-11-15] MEDS: Budesonide 0.5 MG/2 ML NEB NEB SCH ×2 (05:43→18:08)
[2019-11-15] MEDS: Arformoterol 15 MCG/2 ML NEB NEB SCH ×2 (05:56→18:09)
[2019-11-15] MEDS: Lisinopril 10 MG TAB PO SCH (05:57)
[2019-11-15] MEDS: Polyethylene Glycol 3350 17 GM Packet PO SCH (08:49)
[2019-11-15] MEDS: Carvedilol 25 MG TAB PO SCH ×2 (08:50→20:33)
[2019-11-15] MEDS: Trospium 20 MG TAB PO SCH ×2 (08:50→20:34)
[2019-11-15] MEDS: Multivitamin W/ Minerals 1 TAB PO SCH (08:50)
[2019-11-15] MEDS: Aspirin 81 mg Enteric Coated Tablet PO SCH (08:50)
[2019-11-15] MEDS: Allopurinol 100 MG TAB PO SCH (08:51)
[2019-11-15] MEDS: Lantus 1000 UNITS/10 ML VIAL SC SCH ×2 (08:53→20:33)
[2019-11-15] MEDS: Venlafaxine HCl XR 75 MG CAP PO SCH (08:59)
--- NOTE | 2019-11-15 13:16 | PRG ---
DATE OF SERVICE: 11/15/2019 SUBJECTIVE: Ms. Browning is doing well. She remains off her oxygen. She is happy with her progress. Anticipated discharge is tomorrow. Denies any concerns or questions. She has a followup appointment with her PCP tomorrow afternoon. No family at bedside. OBJECTIVE: VITAL SIGNS: She is afebrile, heart rate 74, respirations 18, oxygen saturation 93% on room air, and blood pressure is 137/72 and even with therapy, it went up only to 147/67. CARDIOVASCULAR SYSTEM: S1 and S2 plus. RESPIRATORY SYSTEM: Normal vesicular breath sounds. ABDOMEN: Soft, obese, and nontender. Bowel sounds heard in all quadrants. EXTREMITIES: Without cyanosis or clubbing. CENTRAL NERVOUS SYSTEM: Improved deconditioning. LABORATORY DATA: Blood sugars are 147, 162, 199, 148, and 143. IMPRESSION: 1. Resolved acute hypoxemic respiratory failure. 2. Resolved pneumonitis. 3. Improving deconditioning. 4. Hypertension, much better controlled. 5. Osteoarthritis. 6. Dyslipidemia. 7. Diabetes mellitus, type 2. 8. Overactive bladder. 9. Depression and anxiety. 10. Coronary artery disease. 11. Gout, complicated. PLAN: 1. Continue current medications. 2. Send new prescriptions to [facility] on [facility]. 3. Continue heart healthy ADA diet. 4. Accu-Cheks with sliding scale coverage. 5. DVT and stress ulcer prophylaxis. 6. Decubitus precaution. 7. Anticipate discharge tomorrow. [facility] has already been informed. All orders to go to her primary care physician. Job ID: [id number]
[2019-11-15] MEDS: HumaLOG 300 UNITS/3 ML VIAL SC PRN (18:21)
[2019-11-15] MEDS: Amlodipine 5 MG TAB PO SCH (20:32)
[2019-11-15] MEDS: Atorvastatin Calcium 40 MG TAB PO SCH (20:33)
[2019-11-15] MEDS: Montelukast Sodium 10 mg Tablet PO SCH (20:33)
[2019-11-15] MEDS: Primidone 50 MG TAB PO SCH (20:34)
[2019-11-16] MEDS: Acetaminophen 500 MG TAB PO PRN (01:02)
[2019-11-16] MEDS: Lisinopril 10 MG TAB PO SCH (05:38)
[2019-11-16] MEDS: Budesonide 0.5 MG/2 ML NEB NEB SCH (05:38)
[2019-11-16] MEDS: Arformoterol 15 MCG/2 ML NEB NEB SCH (05:38)
[2019-11-16 08:01] VITALS: TEMP 98.2
[2019-11-16] MEDS: Lantus 1000 UNITS/10 ML VIAL SC SCH (09:12)
[2019-11-16] MEDS: Carvedilol 25 MG TAB PO SCH (09:13)
[2019-11-16] MEDS: Multivitamin W/ Minerals 1 TAB PO SCH (09:13)
[2019-11-16] MEDS: Allopurinol 100 MG TAB PO SCH (09:13)
[2019-11-16] MEDS: Aspirin 81 mg Enteric Coated Tablet PO SCH (09:13)
[2019-11-16] MEDS: Polyethylene Glycol 3350 17 GM Packet PO SCH (09:14)
[2019-11-16] MEDS: Trospium 20 MG TAB PO SCH (09:14)
[2019-11-16] MEDS: Venlafaxine HCl XR 75 MG CAP PO SCH (09:14)
[2019-11-16 11:14] VITALS: BP 132/63
--- NOTE | 2019-11-17 02:59 | DIS ---
DATE OF ADMISSION: 11/03/2019 DATE OF DISCHARGE: 11/16/2019 PRINCIPAL DIAGNOSIS: Resolved acute hypoxemic respiratory failure. SECONDARY DIAGNOSES: 1. Resolved pneumonitis. 2. Hypertension. 3. Dyslipidemia. 4. Coronary artery disease. 5. Diabetes mellitus type 2. 6. Gastroesophageal reflux disease. 7. Depression and anxiety. 8. Overactive bladder. 9. Gout. 10. Osteoarthritis. There is no diagnosis of asthma, but patient was sent here on budesonide and Brovana DuoNeb and advised her to follow up with her PCP and to get worked up for asthma before getting refills on those medications as I do not have a diagnosis to support it. COMPLICATIONS: None. ADVERSE REACTIONS: None. PROCEDURES: None. CONSULTATIONS: Physical Therapy and Occupational Therapy. HOSPITAL COURSE: The patient was admitted on 11/03/[address] Christopher after being in the hospital multiple times recently with hypoxemia and inability to maintain ADLs. She was felt to have pneumonitis and was treated. She also was started on oxygen. Her blood pressures have been running high and she was started on amlodipine 2.5 just before discharge to us here. Here, I had to make significant changes to her blood pressure medications to get it under control. She also has slowly progressed with therapy. She has been titrated off her oxygen. She has deemed to have reached enough independence with her activities that she is safe to go home. She has a followup appointment with her PCP this afternoon. PHYSICAL EXAMINATION: VITAL SIGNS: On the day of discharge, she is afebrile. Heart rate is 82, respirations 18, oxygen saturation 93% on room air, blood pressure was 132/63. CARDIOVASCULAR SYSTEM: S1 and S2 plus. RESPIRATORY SYSTEM: Normal vesicular breath sounds with decreased air entry in the bases. ABDOMEN: Soft, obese, nontender. Bowel sounds heard in all quadrants. EXTREMITIES: Without cyanosis, clubbing, or trace edema. CENTRAL NERVOUS SYSTEM: Awake and responsive. Cranial nerves 2 through 12 intact. Generalized weakness. LABORATORY DATA: Blood sugars are 143, 153, 155, 129, and 148. DISCHARGE MEDICATIONS: The new medications are: 1. Amlodipine 10 mg at bedtime. 2. DuoNeb 3 mL q.i.d. p.r.n. 3. Lisinopril 20 mg daily. All these three medicines were sent to [facility] on [facility] which is her pharmacy. Her other medications that she is to continue are: 1. Tylenol 1 g q.6h p.r.n. 2. Allopurinol 100 mg daily. 3. Aspirin 81 mg daily. 4. Atorvastatin 40 mg daily. 5. Carvedilol 25 mg b.i.d. 6. Pristiq 100 mg daily. 7. Vitamin D3 of 2000 units daily. 8. Lantus 10 units b.i.d. 9. Lisinopril 20 mg daily. 10. Singulair 10 mg daily. 11. Multivitamin one tablet daily. 12. Pantoprazole 40 mg b.i.d. 13. VESIcare 10 mg daily. 1800 calorie heart healthy ADA diet. Home health has been arranged and diet will be managed by her PCP. She is to monitor her blood sugars at home. She is to follow up with her PCP. She has an appointment this afternoon. She is to call us with any questions or concerns. No family at bedside. Total time spent on this discharge is 35 minutes. Job ID: [id number]
== END 2019-11-16 14:57 | disposition home health service (06) | DRG 189 ==
LOC: NAV ACUTE 19:15
PROVIDERS: ADMIT Internal Medicine; ATTEND Internal Medicine
DX: J96.01 Acute respiratory failure with hypoxia (principal); G93.41 Metabolic encephalopathy; J18.9 Pneumonia, unspecified organism; N17.9 Acute kidney failure, unspecified; I13.0 Hypertensive heart and chronic kidney disease with heart failure and stage 1 through stage 4 chronic kidney disease, or unspecified chronic kidney disease; I50.32 Chronic diastolic (congestive) heart failure; N39.0 Urinary tract infection, site not specified; I25.10 Atherosclerotic heart disease of native coronary artery without angina pectoris; Z95.5 Presence of coronary angioplasty implant and graft; Z79.899 Other long term (current) drug therapy; Z90.710 Acquired absence of both cervix and uterus; R53.81 Other malaise; M17.0 Bilateral primary osteoarthritis of knee; E78.5 Hyperlipidemia, unspecified; F41.9 Anxiety disorder, unspecified; F32.9 Major depressive disorder, single episode, unspecified; E11.22 Type 2 diabetes mellitus with diabetic chronic kidney disease; N18.9 Chronic kidney disease, unspecified; E66.01 Morbid (severe) obesity due to excess calories; Z68.39 Body mass index [BMI] 39.0-39.9, adult; Z88.0 Allergy status to penicillin; Z91.048 Other nonmedicinal substance allergy status; Z88.8 Allergy status to other drugs, medicaments and biological substances; M10.9 Gout, unspecified; Z79.4 Long term (current) use of insulin; G47.33 Obstructive sleep apnea (adult) (pediatric)
CPT/HCPCS: 36415; 36416; 80048; 83880; 85025; J1815; J7620; J7626; Q0163

== ENCOUNTER 2020-10-31 14:29 | Inpatient (IN) | payer MEDICARE, BC ==
[2020-10-31] MEDS ORDERED: Acetaminophen 500 MG TAB PO PRN ×2 (17:41→17:51)
[2020-10-31] MEDS ORDERED: Dextrose 50% Abboject 50 ML SYRINGE SLOW IVP PRN (17:52)
[2020-10-31] MEDS ORDERED: Primidone 50 MG TAB PO SCH (21:00)
[2020-10-31] MEDS ORDERED: traZODone HCl 50 MG TAB PO SCH (21:00)
[2020-10-31] MEDS ORDERED: Carvedilol 25 MG TAB PO SCH (21:00)
[2020-10-31] MEDS ORDERED: VIT C PO SCH ×2 (21:00)
[2020-10-31] MEDS ORDERED: Lantus 1000 UNITS/10 ML VIAL SC SCH (21:00)
[2020-10-31] MEDS ORDERED: [UNRECOGNIZED DRUG - OTHER] PO SCH (21:00)
[2020-10-31] MEDS ORDERED: CRANBERRY FRUIT EXTRACT PO SCH ×2 (21:00)
[2020-10-31] MEDS ORDERED: Trospium 20 MG TAB PO SCH (21:00)
[2020-10-31] MEDS ORDERED: Montelukast Sodium 10 mg Tablet PO SCH (21:00)
[2020-10-31] MEDS ORDERED: Atorvastatin Calcium 40 MG TAB PO SCH (21:00)
--- NOTE | 2020-10-31 21:26 | HP ---
HISTORY OF PRESENT ILLNESS: The patient is an 85-year-old white female, morbid obesity, who lives alone at home, was caring for herself until she became acutely weak, associated with fever, was found to have a urinary tract infection, admitted to the hospital, started on IV Rocephin. Did require fluids because of sepsis criteria with improvement. She had mild acute kidney injury, which resolved; mild hypoxia, which resolved with 2 L of cannula. The patient ambulates very little at home and was found to be significantly deconditioned and weak, was unable to ambulate. Her blood did grow however E coli sensitive to multiple antibiotics. Therefore, she was switched to Levaquin 500 mg daily. A 2D transthoracic echocardiogram shows EF of 60% to 65%, consistent with diastolic heart failure. COVID testing was negative. It was therefore felt to be stable to be transferred to the [facility] to continue her Levaquin for full 14-day course, but mainly to start on significant PT and OT for deconditioning. PAST MEDICAL HISTORY: Remarkable for hypertension, well controlled; coronary artery disease status post angioplasty and stent; urinary incontinence; and type 2 diabetes. MEDICATIONS: Previously of; 1. Atorvastatin. 2. Carvedilol. ALLERGIES: SHE IS ALLERGIC TO PENICILLIN, KEFLEX, AND NSAIDS. SOCIAL HISTORY: As mentioned above she lives alone with the family nearby. She is a nonsmoker and nondrinker. PAST SURGICAL HISTORY: Positive for hysterectomy. REVIEW OF SYSTEMS: HEENT: She denies any headaches, dizziness, change in vision or hearing, hoarseness, or dysphagia. PULMONARY: She denies cough, sputum production, pneumonia, asthma, or tuberculosis, although the chest x-ray on this admission did show a left lower lobe infiltrate. She has no previous history of hypoxemia. CARDIOVASCULAR: She denies chest pain, orthopnea, paroxysmal nocturnal dyspnea, or edema. GASTROINTESTINAL: She denies nausea, vomiting, diarrhea, constipation, or abdominal pain. GENITOURINARY: She does have the above-mentioned incontinence and occasional dysuria. PHYSICAL EXAMINATION: GENERAL: The patient is a morbidly obese white female, awake and alert, in no acute distress, lying in bed, oriented x3 and cooperative. VITAL SIGNS: Showed to have blood pressure of 158/71, O2 saturations 95% on 2 L, respirations 18, pulse 68, and afebrile. HEENT: Pupils are equal, round, and reactive to light and accommodation. Sclerae are anicteric. Conjunctivae are pale. Oral mucous membranes well hydrated. NECK: Supple. There are no nodes or masses. JVP is not elevated. LUNGS: Clear. CARDIAC: Shows regular rhythm. No gallops or murmurs. ABDOMEN: Obese, nontender with no masses or organomegaly. SKIN/EXTREMITIES: Display no edema, clubbing, or cyanosis. NEUROLOGICAL: Intact. LABORATORY DATA: Most recently showed white count of 16,500, hematocrit 33, and hemoglobin 11. Accu-Cheks ranged from 104 to 137. Urinalysis showed pyuria and bacteriuria. COVID was negative. Flu was negative. Urine culture and blood cultures all showed E coli, pansensitive. ASSESSMENT AND PLAN: 1. Escherichia coli bacteremia and sensitive responding to Rocephin, but with persistent leukocytosis and we will repeat CBC in the a.m., but has been switched to Levaquin and will continue this if CBC is normal. 2. Severe deconditioning chronically, but with recent exacerbation requiring PT/OT as the patient is unable to maintain ADLs at home. 3. Diabetes type 2 with fair control with Accu-Cheks ranging from 140 to 173, and we will continue on her prehospitalization medications of Lantus 35 units at night, but also sliding scale and will slowly increase up if needed. 4. Hypertension, treated with carvedilol 25 twice daily and amlodipine 5 daily. 5. Diastolic heart failure. We can treat it with spironolactone, above-mentioned carvedilol. 6. Gouty arthritis, asymptomatic on allopurinol, continue. 7. Anxiety and depression, we treat it with Desyrel at night and venlafaxine. Job ID: [id number]
[2020-10-31] MEDS: Lantus 1000 UNITS/10 ML VIAL SC SCH (21:51)
[2020-10-31] MEDS: Trospium 20 MG TAB PO SCH (21:52)
[2020-10-31] MEDS: Primidone 50 MG TAB PO SCH (21:52)
[2020-10-31] MEDS: Montelukast Sodium 10 mg Tablet PO SCH (21:52)
[2020-10-31] MEDS: traZODone HCl 50 MG TAB PO SCH (21:52)
[2020-10-31] MEDS: Carvedilol 25 MG TAB PO SCH (21:53)
[2020-10-31] MEDS: Atorvastatin Calcium 40 MG TAB PO SCH (21:53)
[2020-11-01 05:29] LABS: #Basophils 0.1 thou/uL (0.0-0.2); #Eosinphils 0.4 thou/uL (0.0-0.7); #Monocytes 1.1 thou/uL (0.11-0.59); #Neutrophils 11.9 thou/uL (1.40-6.50); %Basophils 0.4 % (0.0-1.0); %Eosinophils 2.2 % (0.0-10.0); %Monocytes 6.7 % (0.0-10.0); %Neutrophils 72.7 % (42.0-75.0); Hemoglobin 10.9 g/dL (12.0-16.0); Mean Corpuscular Hemoglobin 30.4 pg (27.0-31.0); Mean Corpuscular Volume 94.8 fL (78.0-98.0); Mean Platelet Volume 7.6 fL (7.4-10.4); Platelet Count 303 thou/uL (130-400); RBC Distribution Width 15.3 % (11.5-14.5); White Blood Cell (WBC) Count 16.4 thou/uL (4.8-10.8)
[2020-11-01 05:44] LABS: ALT (SGPT) 55 U/L (8-55); AST (SGOT) 32 U/L (5-34); Albumin 2.8 g/dL (3.4-4.8); Alkaline Phosphatase 101 U/L (40-110); Anion Gap 13 mmol/L (10-20); BUN (Urea Nitrogen) 15 mg/dL (9.8-20.1); Bilirubin, Total 0.3 mg/dL (0.2-1.2); Calc. Creatinine Clearance 69 mL/min (70-130); Calcium 8.1 mg/dL (7.8-10.44); Carbon Dioxide 30 mmol/L (23-31); Chloride 102 mmol/L (98-107); Globulin 2.7 g/dL (2.4-3.5); Glucose 118 mg/dL (83-110); Potassium 3.6 mmol/L (3.5-5.1); Protein, Total 5.5 g/dL (6.0-8.3); Sodium 141 mmol/L (136-145)
[2020-11-01] MEDS ORDERED: Spironolactone 25 MG TAB PO SCH (08:00)
[2020-11-01] MEDS: Spironolactone 25 MG TAB PO SCH (08:53)
[2020-11-01] MEDS: Multivitamin W/ Minerals 1 TAB PO SCH (08:54)
[2020-11-01] MEDS: Cholecalciferol 1,000 UNITS (25 MCG) TAB PO SCH (08:54)
[2020-11-01] MEDS: Venlafaxine HCl XR 75 MG CAP PO SCH (08:55)
[2020-11-01] MEDS: Trospium 20 MG TAB PO SCH ×2 (08:56→20:35)
[2020-11-01] MEDS: Aspirin 81 mg Enteric Coated Tablet PO SCH (08:57)
[2020-11-01] MEDS: Amlodipine 5 MG TAB PO SCH (08:57)
[2020-11-01] MEDS ORDERED: Allopurinol 100 MG TAB PO SCH (09:00)
[2020-11-01] MEDS ORDERED: [UNRECOGNIZED DRUG - OTHER] PO SCH (09:00)
[2020-11-01] MEDS ORDERED: Aspirin 81 mg Enteric Coated Tablet PO SCH (09:00)
[2020-11-01] MEDS: Carvedilol 25 MG TAB PO SCH ×2 (09:00→20:36)
[2020-11-01] MEDS ORDERED: Venlafaxine HCl XR 75 MG CAP PO SCH (09:00)
[2020-11-01] MEDS ORDERED: Cholecalciferol 1,000 UNITS (25 MCG) TAB PO SCH (09:00)
[2020-11-01] MEDS ORDERED: Multivitamin W/ Minerals 1 TAB PO SCH (09:00)
[2020-11-01] MEDS ORDERED: ASCORBIC ACID PO SCH (09:00)
[2020-11-01] MEDS ORDERED: VITAMIN E PO SCH (09:00)
[2020-11-01] MEDS ORDERED: Amlodipine 5 MG TAB PO SCH (09:00)
[2020-11-01] MEDS ORDERED: BIOTIN PO SCH (09:00)
[2020-11-01] MEDS ORDERED: [UNRECOGNIZED DRUG - OTHER] PO SCH (09:00)
[2020-11-01] MEDS: Allopurinol 100 MG TAB PO SCH (09:00)
[2020-11-01] MEDS: HumaLOG 300 UNITS/3 ML VIAL SC PRN (17:24)
[2020-11-01] MEDS: traZODone HCl 50 MG TAB PO SCH (20:35)
[2020-11-01] MEDS: Montelukast Sodium 10 mg Tablet PO SCH (20:36)
[2020-11-01] MEDS: Atorvastatin Calcium 40 MG TAB PO SCH (20:36)
[2020-11-01] MEDS: Primidone 50 MG TAB PO SCH (20:36)
[2020-11-01] MEDS: Lantus 1000 UNITS/10 ML VIAL SC SCH (20:37)
[2020-11-02 05:37] LABS: #Basophils 0.1 thou/uL (0.0-0.2); #Eosinphils 0.3 thou/uL (0.0-0.7); #Lymphocytes 2.7 thou/uL (1.20-3.40); #Neutrophils 8.8 thou/uL (1.40-6.50); %Basophils 0.6 % (0.0-1.0); %Eosinophils 2.4 % (0.0-10.0); %Lymphocytes 20.8 % (21.0-51.0); %Monocytes 7.5 % (0.0-10.0); %Neutrophils 68.8 % (42.0-75.0); Hemoglobin 10.8 g/dL (12.0-16.0); Mean Corpuscular HGB CONC 32.3 g/dL (32.0-36.0); Mean Corpuscular Hemoglobin 30.9 pg (27.0-31.0); Mean Corpuscular Volume 95.5 fL (78.0-98.0); Mean Platelet Volume 7.5 fL (7.4-10.4); Platelet Count 276 thou/uL (130-400); RBC Distribution Width 14.6 % (11.5-14.5); Red Blood Cell (RBC) Count 3.48 mill/uL (4.20-5.40); White Blood Cell (WBC) Count 12.8 thou/uL (4.8-10.8)
[2020-11-02] MEDS: Allopurinol 100 MG TAB PO SCH (08:46)
[2020-11-02] MEDS: Spironolactone 25 MG TAB PO SCH (08:46)
[2020-11-02] MEDS: Amlodipine 5 MG TAB PO SCH (08:46)
[2020-11-02] MEDS: Multivitamin W/ Minerals 1 TAB PO SCH (08:47)
[2020-11-02] MEDS: Carvedilol 25 MG TAB PO SCH ×2 (08:47→20:34)
[2020-11-02] MEDS: Cholecalciferol 1,000 UNITS (25 MCG) TAB PO SCH (08:47)
[2020-11-02] MEDS: Aspirin 81 mg Enteric Coated Tablet PO SCH (08:47)
[2020-11-02] MEDS: Venlafaxine HCl XR 75 MG CAP PO SCH (08:48)
[2020-11-02] MEDS: Trospium 20 MG TAB PO SCH ×2 (08:48→20:34)
--- NOTE | 2020-11-02 08:58 | PRG ---
DATE OF SERVICE: 11/01/2020 SUBJECTIVE: The patient is lying in bed, visiting with daughter, has been cooperating somewhat with therapy. Has had no further fever or chills. She has had no nausea and vomiting. Daughter is in room and discussed advance directive and decided to keep the patient a full code with the daughter's medical power of transactional attorney to decide later about change of therapy. OBJECTIVE: VITAL SIGNS: Temperature is 96.6, pulse 72, respirations 18, O2 saturations 95% on 2 L, blood pressure 133/60. LUNGS: Clear. CARDIAC: Regular rhythm. ABDOMEN: Soft and nontender, but obese. EXTREMITIES: Show no edema, clubbing, or cyanosis. LABORATORY DATA: White count 16,400, hematocrit 34, hemoglobin 10.9. Sodium 141, potassium 3.6, chloride 102, bicarb 30, BUN 15, creatinine 0.98, glucose 118, calcium 8.1, total bilirubin 0.3, AST 32, ALT 55, alkaline phosphatase 101, total protein 5.5, albumin 2.8. ASSESSMENT: 1. Resolving Escherichia coli bacteremia, on Levaquin. We will repeat CBC in the morning as the white count is still elevated. 2. Severe deconditioning, willing to start with therapy. 3. Type 2 diabetes, fair control. 4. Hypertension, controlled to goal. 5. Diastolic heart failure, compensated. 6. Gouty arthritis, asymptomatic. 7. Anxiety and depression, stable. PLAN: 1. Continue PT/OT. 2. Repeat CBC in a.m. 3. Continue Levaquin unless CBC does not return to normal. 4. Continue Accu-Cheks to monitor and titrate and control diabetes. 5. Continue to monitor vital signs with therapy. Job ID: [id number]
[2020-11-02] MEDS: HumaLOG 300 UNITS/3 ML VIAL SC PRN (11:57)
[2020-11-02] MEDS: Atorvastatin Calcium 40 MG TAB PO SCH (20:34)
[2020-11-02] MEDS: Montelukast Sodium 10 mg Tablet PO SCH (20:34)
[2020-11-02] MEDS: Primidone 50 MG TAB PO SCH (20:34)
[2020-11-02] MEDS: Lantus 1000 UNITS/10 ML VIAL SC SCH (20:35)
[2020-11-02] MEDS: traZODone HCl 50 MG TAB PO SCH (20:35)
[2020-11-03] MEDS: Spironolactone 25 MG TAB PO SCH (08:33)
[2020-11-03] MEDS: Amlodipine 5 MG TAB PO SCH (08:34)
[2020-11-03] MEDS: Aspirin 81 mg Enteric Coated Tablet PO SCH (08:34)
[2020-11-03] MEDS: Allopurinol 100 MG TAB PO SCH (08:34)
--- NOTE | 2020-11-03 08:34 | PRG ---
DATE OF SERVICE: 11/02/2020 SUBJECTIVE: The patient is lying in the bed, resting, had minimal therapy today and understands she will probably not get therapy again tomorrow, but she feels that she did cooperate and did take some steps into the bathroom today with assistance. She has had no fever, chills, or dysuria. OBJECTIVE: VITAL SIGNS: With temperature 98.9, pulse 74, respirations 18, O2 sats 96% on 2 L, blood pressure 122/60. LUNGS: Clear. CARDIAC: Regular rhythm. ABDOMEN: Soft and nontender, but obese. SKIN/EXTREMITIES: No edema, clubbing, or cyanosis. NEUROLOGICAL: No focal findings. LABORATORY AND DIAGNOSTIC STUDIES: Laboratory showed a white count improved greatly to 12,800, hematocrit 33, hemoglobin 10. Accu-Cheks were stable 113 to 170. ASSESSMENT: 1. Resolving Escherichia coli bacteremia secondary to urinary tract infection, on Levaquin 500 mg daily and appears to be improving with white count decreasing almost to normal. 2. Deconditioning, inability to maintain ADLs. Starting on PT/OT and pledging compliance. 3. Diabetes type 2 controlled to goal with Accu-Cheks ranging to less than 200 with no hypoglycemia. Continue prehospitalization Lantus 35 units at night plus sliding scale, mild. 4. Hypertension, controlled to goal. 5. Diastolic heart failure, compensated. 6. Anxiety and depression appears to be well treated. This patient states that she will cooperate with therapy although daughter is concerned that she may not. PLAN: 1. Continue oral Levaquin. 2. Continue PT and OT. 3. Repeat CBC next week. 4. Continue Accu-Cheks to monitor and titrate and control diabetes. 5. Continue to monitor vital signs. Job ID: [id number]
[2020-11-03] MEDS: Multivitamin W/ Minerals 1 TAB PO SCH (08:35)
[2020-11-03] MEDS: Carvedilol 25 MG TAB PO SCH ×2 (08:35→21:13)
[2020-11-03] MEDS: Cholecalciferol 1,000 UNITS (25 MCG) TAB PO SCH (08:35)
[2020-11-03] MEDS: Trospium 20 MG TAB PO SCH ×2 (08:36→21:14)
[2020-11-03] MEDS: Venlafaxine HCl XR 75 MG CAP PO SCH (08:36)
[2020-11-03] MEDS: traZODone HCl 50 MG TAB PO SCH (21:13)
[2020-11-03] MEDS: Montelukast Sodium 10 mg Tablet PO SCH (21:13)
[2020-11-03] MEDS: Atorvastatin Calcium 40 MG TAB PO SCH (21:14)
[2020-11-03] MEDS: Primidone 50 MG TAB PO SCH (21:14)
[2020-11-03] MEDS: Lantus 1000 UNITS/10 ML VIAL SC SCH (21:15)
--- NOTE | 2020-11-04 08:28 | PRG ---
DATE OF SERVICE: 11/03/2020 SUBJECTIVE: The patient is lying in the bed, resting, talking to her family on the phone. She has had a very nice day, therapy to start tomorrow. She has been eating well. No cough, shortness of breath. No dysuria, hematuria. OBJECTIVE: VITAL SIGNS: Temperature 98.2, pulse 77, respirations 20, O2 sats 96% on 2 L, blood pressure 144/62. RESPIRATORY: Lungs are clear. CARDIAC EXAMINATION: Shows regular rhythm. ABDOMEN: Soft and nontender. DIAGNOSTIC STUDIES: Accu-Cheks ranged from 123-158. ASSESSMENT: 1. Resolving Escherichia coli bacteremia, on oral Levaquin, finished a full 14-day course. 2. Deconditioning with inability to maintain ADLs, starting PT, OT tomorrow. 3. Type 2 diabetes, controlled to goal, Accu-Cheks less than 200 on prehospitalization dose of Lantus 35 units plus sliding scale, mild. 4. Hypertension, controlled to goal. 5. Heart failure with preserved ejection fraction, compensated. 6. Anxiety and depression stable. PLAN: 1. Continue oral Levaquin to finish full 2-week course of antibiotics on November 14. 2. Deconditioning. 3. PT, OT tomorrow. 4. Continue Accu-Cheks to monitor and titrate and control diabetes. 5. Continue monitor for signs of decompensation, congestive heart failure. Job ID: [id number]
[2020-11-04] MEDS: Trospium 20 MG TAB PO SCH ×2 (08:31→20:34)
[2020-11-04] MEDS: Cholecalciferol 1,000 UNITS (25 MCG) TAB PO SCH (08:31)
[2020-11-04] MEDS: Venlafaxine HCl XR 75 MG CAP PO SCH (08:31)
[2020-11-04] MEDS: Spironolactone 25 MG TAB PO SCH (08:31)
[2020-11-04] MEDS: Multivitamin W/ Minerals 1 TAB PO SCH (08:31)
[2020-11-04] MEDS: Allopurinol 100 MG TAB PO SCH (08:31)
[2020-11-04] MEDS: Carvedilol 25 MG TAB PO SCH ×2 (08:32→20:34)
[2020-11-04] MEDS: Amlodipine 5 MG TAB PO SCH (08:32)
[2020-11-04] MEDS: Aspirin 81 mg Enteric Coated Tablet PO SCH (08:32)
[2020-11-04] MEDS: Montelukast Sodium 10 mg Tablet PO SCH (20:34)
[2020-11-04] MEDS: traZODone HCl 50 MG TAB PO SCH (20:34)
[2020-11-04] MEDS: Atorvastatin Calcium 40 MG TAB PO SCH (20:34)
[2020-11-04] MEDS: Primidone 50 MG TAB PO SCH (20:34)
[2020-11-04] MEDS: Lantus 1000 UNITS/10 ML VIAL SC SCH (20:38)
[2020-11-05] MEDS: Venlafaxine HCl XR 75 MG CAP PO SCH (10:01)
[2020-11-05] MEDS: Cholecalciferol 1,000 UNITS (25 MCG) TAB PO SCH (10:01)
[2020-11-05] MEDS: Allopurinol 100 MG TAB PO SCH (10:01)
[2020-11-05] MEDS: Multivitamin W/ Minerals 1 TAB PO SCH (10:02)
[2020-11-05] MEDS: Aspirin 81 mg Enteric Coated Tablet PO SCH (10:02)
[2020-11-05] MEDS: Carvedilol 25 MG TAB PO SCH ×2 (10:02→21:21)
[2020-11-05] MEDS: Spironolactone 25 MG TAB PO SCH (10:02)
[2020-11-05] MEDS: Trospium 20 MG TAB PO SCH ×2 (10:02→21:21)
[2020-11-05] MEDS: Amlodipine 5 MG TAB PO SCH (10:02)
[2020-11-05] MEDS: HumaLOG 300 UNITS/3 ML VIAL SC PRN (11:32)
--- NOTE | 2020-11-05 20:15 | PRG ---
DATE OF SERVICE: 11/04/2020 SUBJECTIVE: The patient feels well, sitting up in the bed. States that she has worked with therapy and is willing to work more. OBJECTIVE: VITAL SIGNS: Temperature is , pulse 88, respirations 22, O2 saturations 95% on 2 L, blood pressure 137/63. Accu-Cheks ranged from 138 to 112. ASSESSMENT: 1. Resolving Escherichia coli bacteremia, on oral Levaquin for full 14-day course. 2. Deconditioning with inability to maintain ADLs, but cooperating with PT, OT. 3. Type 2 diabetes, initially uncontrolled, but now controlled with only occasional use of mild sliding scale. 4. Hypertension, appears to be only borderline control give one more day. 5. Heart failure with preserved ejection fraction, compensated. 6. Anxiety and depression, stable. PLAN: 1. Monitor blood pressure. May need to adjust medications. 2. Continue PT/OT. 3. Continue Accu-Cheks to monitor and titrate and control diabetes. 4. Monitor congestive heart failure for signs of decompensation. Job ID: [id number]
[2020-11-05] MEDS: Primidone 50 MG TAB PO SCH (21:20)
[2020-11-05] MEDS: Atorvastatin Calcium 40 MG TAB PO SCH (21:21)
[2020-11-05] MEDS: Lantus 1000 UNITS/10 ML VIAL SC SCH (21:21)
[2020-11-05] MEDS: traZODone HCl 50 MG TAB PO SCH (21:21)
[2020-11-05] MEDS: Montelukast Sodium 10 mg Tablet PO SCH (21:21)
[2020-11-06] MEDS: Spironolactone 25 MG TAB PO SCH (08:47)
[2020-11-06] MEDS: Amlodipine 5 MG TAB PO SCH (08:48)
[2020-11-06] MEDS: Allopurinol 100 MG TAB PO SCH (08:48)
[2020-11-06] MEDS: Aspirin 81 mg Enteric Coated Tablet PO SCH (08:48)
[2020-11-06] MEDS: Cholecalciferol 1,000 UNITS (25 MCG) TAB PO SCH (08:48)
[2020-11-06] MEDS: Carvedilol 25 MG TAB PO SCH ×2 (08:48→21:03)
[2020-11-06] MEDS: Multivitamin W/ Minerals 1 TAB PO SCH (08:49)
[2020-11-06] MEDS: Trospium 20 MG TAB PO SCH ×2 (08:49→21:02)
[2020-11-06] MEDS: Lisinopril 10 MG TAB PO SCH (08:49)
[2020-11-06] MEDS: Venlafaxine HCl XR 75 MG CAP PO SCH (08:49)
--- NOTE | 2020-11-06 20:16 | PRG ---
DATE OF SERVICE: 11/05/2020 SUBJECTIVE: Ms. Browning is up outside with therapy, enjoying, little bit better. She denies any questions or concerns. She is noticing some allergy symptoms. OBJECTIVE: VITAL SIGNS: She is afebrile. Heart rate 85, respirations 18, oxygen saturation 93% on room air, blood pressure 148/73. CARDIOVASCULAR SYSTEM: S1, S2 plus. RESPIRATORY SYSTEM: Normal vesicular breath sounds. ABDOMEN: Soft, nontender. Bowel sounds in all quadrants. EXTREMITIES: Without cyanosis, clubbing. CENTRAL NERVOUS SYSTEM: Generalized weakness. IMPRESSION: 1. Escherichia coli bacteremia. 2. Deconditioning. 3. Diabetes mellitus type 2. 4. Hypertension. 5. Anxiety and depression. 6. Allergic rhinitis. PLAN: 1. Continue current medications. 2. Monitor for continued resolution of bacteremia. 3. Heart healthy diet. 4. DVT prophylaxis. 5. Decubitus precautions. 6. Is already on Singulair. 7. Physical therapy. 8. Routine laboratory values. Job ID: [id number]
[2020-11-06] MEDS: Primidone 50 MG TAB PO SCH (21:02)
[2020-11-06] MEDS: traZODone HCl 50 MG TAB PO SCH (21:02)
[2020-11-06] MEDS: Atorvastatin Calcium 40 MG TAB PO SCH (21:02)
[2020-11-06] MEDS: Montelukast Sodium 10 mg Tablet PO SCH (21:03)
[2020-11-06] MEDS: Lantus 1000 UNITS/10 ML VIAL SC SCH (21:04)
[2020-11-07] MEDS: Spironolactone 25 MG TAB PO SCH (08:26)
[2020-11-07] MEDS: Amlodipine 5 MG TAB PO SCH (08:26)
[2020-11-07] MEDS: Allopurinol 100 MG TAB PO SCH (08:26)
[2020-11-07] MEDS: Aspirin 81 mg Enteric Coated Tablet PO SCH (08:27)
[2020-11-07] MEDS: Carvedilol 25 MG TAB PO SCH ×2 (08:27→20:34)
[2020-11-07] MEDS: Cholecalciferol 1,000 UNITS (25 MCG) TAB PO SCH (08:27)
[2020-11-07] MEDS: Lisinopril 10 MG TAB PO SCH (08:27)
[2020-11-07] MEDS: Multivitamin W/ Minerals 1 TAB PO SCH (08:28)
[2020-11-07] MEDS: Trospium 20 MG TAB PO SCH ×2 (08:28→20:35)
[2020-11-07] MEDS: Venlafaxine HCl XR 75 MG CAP PO SCH (08:28)
[2020-11-07] MEDS: HumaLOG 300 UNITS/3 ML VIAL SC PRN (11:43)
[2020-11-07] MEDS: Atorvastatin Calcium 40 MG TAB PO SCH (20:34)
[2020-11-07] MEDS: Montelukast Sodium 10 mg Tablet PO SCH (20:34)
[2020-11-07] MEDS: traZODone HCl 50 MG TAB PO SCH (20:34)
[2020-11-07] MEDS: Primidone 50 MG TAB PO SCH (20:34)
[2020-11-07] MEDS: Lantus 1000 UNITS/10 ML VIAL SC SCH (20:34)
[2020-11-08] MEDS: Aspirin 81 mg Enteric Coated Tablet PO SCH (08:06)
[2020-11-08] MEDS: Trospium 20 MG TAB PO SCH (08:06)
[2020-11-08] MEDS: Cholecalciferol 1,000 UNITS (25 MCG) TAB PO SCH (08:07)
[2020-11-08] MEDS: Spironolactone 25 MG TAB PO SCH (08:07)
[2020-11-08] MEDS: Lisinopril 10 MG TAB PO SCH (08:07)
[2020-11-08] MEDS: Venlafaxine HCl XR 75 MG CAP PO SCH (08:07)
[2020-11-08] MEDS: Multivitamin W/ Minerals 1 TAB PO SCH (08:08)
[2020-11-08] MEDS: Carvedilol 25 MG TAB PO SCH (08:08)
[2020-11-08] MEDS: Allopurinol 100 MG TAB PO SCH (08:08)
[2020-11-08] MEDS: Amlodipine 5 MG TAB PO SCH (08:08)
--- NOTE | 2020-11-08 09:02 | PRG ---
DATE OF SERVICE: 11/07/2020 SUBJECTIVE: The patient feels well, is working with therapy, but is exhausted. She has problems with intermittent diarrhea, but did not have any bowel movement yesterday. OBJECTIVE: VITAL SIGNS: Shows temperature 99.3, pulse 76, respirations 20, O2 sats 94% on room air, blood pressure 111/51. Accu-Cheks ranged from 108 to 157. LUNGS: Clear. CARDIAC: Shows regular rhythm. ABDOMEN: Soft, nontender. ASSESSMENT: 1. Recurrent diarrhea, most likely due to irritable bowel, need to follow and treat intermittently. 2. Escherichia coli bacteremia, resolving on finished with antibiotics, but requiring PT. 3. Deconditioning, improving. 4. Type 2 diabetes, controlled to goal. PLAN: 1. Continue PT, OT. 2. Continue to monitor for recurrent bacteremia. 3. Consider treatment for irritable bowel. I discussed with the patient. Job ID: [id number]
[2020-11-08] MEDS ORDERED: Dicyclomine 20 MG TAB PO SCH (09:30)
--- NOTE | 2020-11-08 10:35 | PRG ---
DATE OF SERVICE: 11/08/2020 SUBJECTIVE: The patient is feeling better, working with therapy, but is having problem with intermittent diarrhea, which she states she has had in the past for unrelated reasons, not associated with abdominal pain, nausea, vomiting, fever, or chills. OBJECTIVE: VITAL SIGNS: Show temperature is 99.5, pulse 79, respirations 20, O2 saturations 92% on 1 L, and blood pressure 131/60. LUNGS: Clear. CARDIAC: Shows regular rhythm. ABDOMEN: Soft and nontender. EXTREMITIES: Showed no edema, clubbing, or cyanosis. ASSESSMENT: 1. Resolving E coli bacteremia. 2. Recurrent diarrhea, possibly irritable bowel and we will treat accordingly. 3. Deconditioning improving, but with persistent hypoxemia. 4. Type 2 diabetes, controlled to goal. PLAN: 1. Continue PT, OT. 2. Continue to wean off oxygen. Obtain chest x-ray today. 3. Start on dicyclomine 20 mg 3 times daily for possible irritable bowel. Job ID: [id number]
[2020-11-08] MEDS: Dicyclomine 20 MG TAB PO SCH ×2 (13:00→17:00)
[2020-11-08] MEDS ORDERED: Sodium Chloride 0.9% 20 ML ONE (15:08)
[2020-11-09] MEDS: Lantus 1000 UNITS/10 ML VIAL SC SCH ×2 (05:05→20:54)
[2020-11-09] MEDS: Carvedilol 25 MG TAB PO SCH ×3 (05:05→20:52)
[2020-11-09] MEDS: Dicyclomine 20 MG TAB PO SCH ×5 (05:05→20:52)
[2020-11-09] MEDS: Atorvastatin Calcium 40 MG TAB PO SCH ×2 (05:05→20:53)
[2020-11-09] MEDS: Montelukast Sodium 10 mg Tablet PO SCH ×2 (05:05→20:53)
[2020-11-09] MEDS: Primidone 50 MG TAB PO SCH ×2 (05:06→20:53)
[2020-11-09] MEDS: traZODone HCl 50 MG TAB PO SCH ×2 (05:06→20:52)
[2020-11-09] MEDS: Trospium 20 MG TAB PO SCH ×3 (05:06→20:53)
[2020-11-09] MEDS: Aspirin 81 mg Enteric Coated Tablet PO SCH (08:43)
[2020-11-09] MEDS: Lisinopril 10 MG TAB PO SCH (08:43)
[2020-11-09] MEDS: Venlafaxine HCl XR 75 MG CAP PO SCH (08:43)
[2020-11-09] MEDS: Spironolactone 25 MG TAB PO SCH (08:43)
[2020-11-09] MEDS: Amlodipine 5 MG TAB PO SCH (08:43)
[2020-11-09] MEDS: Allopurinol 100 MG TAB PO SCH (08:44)
[2020-11-09] MEDS: Multivitamin W/ Minerals 1 TAB PO SCH (08:47)
[2020-11-09] MEDS: Cholecalciferol 1,000 UNITS (25 MCG) TAB PO SCH (08:47)
--- NOTE | 2020-11-09 10:17 | RAD ---
RADIOGRAPH CHEST 1 VIEW: DATE: 11/09/2020 TIME: 10:16 AM HISTORY: 85-year-old female with hypoxia COMPARISON: 10/26/2020 FINDINGS: There is diffuse pulmonary venous engorgement, similar to prior study. No cardiomegaly. Previously there was dense large region of left basilar lower lobe opacification. That has apparently resolved. The mild increased attenuation at the right base has also resolved. Currently no consolidation. No pneumothorax. Lateral costophrenic angles are sharp. IMPRESSION: 1) pulmonary venous congestion. 2) no consolidation visualized
[2020-11-09] MEDS: HumaLOG 300 UNITS/3 ML VIAL SC PRN (12:10)
[2020-11-10] MEDS: Trospium 20 MG TAB PO SCH ×2 (08:45→20:39)
[2020-11-10] MEDS: Amlodipine 5 MG TAB PO SCH (08:45)
[2020-11-10] MEDS: Dicyclomine 20 MG TAB PO SCH ×4 (08:45→20:39)
[2020-11-10] MEDS: Aspirin 81 mg Enteric Coated Tablet PO SCH (08:45)
[2020-11-10] MEDS: Multivitamin W/ Minerals 1 TAB PO SCH (08:45)
[2020-11-10] MEDS: Venlafaxine HCl XR 75 MG CAP PO SCH (08:46)
[2020-11-10] MEDS: Carvedilol 25 MG TAB PO SCH ×2 (08:46→20:39)
[2020-11-10] MEDS: Allopurinol 100 MG TAB PO SCH (08:46)
[2020-11-10] MEDS: Cholecalciferol 1,000 UNITS (25 MCG) TAB PO SCH (08:46)
[2020-11-10] MEDS: Spironolactone 25 MG TAB PO SCH (08:46)
[2020-11-10] MEDS: Lisinopril 10 MG TAB PO SCH (08:46)
[2020-11-10 19:00] VITALS: BMI 39.4
[2020-11-10] MEDS: Atorvastatin Calcium 40 MG TAB PO SCH (20:38)
[2020-11-10] MEDS: traZODone HCl 50 MG TAB PO SCH (20:39)
[2020-11-10] MEDS: Montelukast Sodium 10 mg Tablet PO SCH (20:39)
[2020-11-10] MEDS: Primidone 50 MG TAB PO SCH (20:40)
[2020-11-10] MEDS: Lantus 1000 UNITS/10 ML VIAL SC SCH (20:40)
[2020-11-11] MEDS: Spironolactone 25 MG TAB PO SCH (08:36)
[2020-11-11] MEDS: Aspirin 81 mg Enteric Coated Tablet PO SCH (08:36)
[2020-11-11] MEDS: Allopurinol 100 MG TAB PO SCH (08:36)
[2020-11-11] MEDS: Amlodipine 5 MG TAB PO SCH (08:36)
[2020-11-11] MEDS: Carvedilol 25 MG TAB PO SCH ×2 (08:36→20:52)
[2020-11-11] MEDS: Dicyclomine 20 MG TAB PO SCH ×4 (08:37→20:52)
[2020-11-11] MEDS: Cholecalciferol 1,000 UNITS (25 MCG) TAB PO SCH (08:37)
[2020-11-11] MEDS: Furosemide 40 MG TAB PO SCH (08:37)
[2020-11-11] MEDS: Lisinopril 10 MG TAB PO SCH (08:37)
[2020-11-11] MEDS: Venlafaxine HCl XR 75 MG CAP PO SCH (08:38)
[2020-11-11] MEDS: Multivitamin W/ Minerals 1 TAB PO SCH (08:38)
[2020-11-11] MEDS: Trospium 20 MG TAB PO SCH ×2 (08:38→20:52)
--- NOTE | 2020-11-11 15:17 | RAD ---
CHEST 1 VIEW: HISTORY: Chills. COMPARISON: Radiograph 11/09/2020. FINDINGS: Heart size is enlarged as well as the pulmonary arteries. No confluent airspace consolidation, pneum othorax, or effusion. An underlying undergarment limits evaluation of the mediastinum. IMPRESSION: Similar examination to the chest with pulmonary venous congestion. POS: HOME
[2020-11-11 16:39] LABS: #Basophils 0.1 thou/uL (0.0-0.2); #Eosinphils 0.2 thou/uL (0.0-0.7); #Lymphocytes 2.1 thou/uL (1.20-3.40); #Monocytes 0.9 thou/uL (0.11-0.59); #Neutrophils 4.9 thou/uL (1.40-6.50); %Basophils 0.8 % (0.0-1.0); %Eosinophils 2.4 % (0.0-10.0); %Monocytes 11.5 % (0.0-10.0); %Neutrophils 59.3 % (42.0-75.0); Hemoglobin 11.3 g/dL (12.0-16.0); Mean Corpuscular HGB CONC 32.1 g/dL (32.0-36.0); Mean Corpuscular Hemoglobin 29.9 pg (27.0-31.0); Mean Corpuscular Volume 93.3 fL (78.0-98.0); Mean Platelet Volume 6.3 fL (7.4-10.4); Platelet Count 298 thou/uL (130-400); RBC Distribution Width 13.8 % (11.5-14.5); Red Blood Cell (RBC) Count 3.77 mill/uL (4.20-5.40); White Blood Cell (WBC) Count 8.2 thou/uL (4.8-10.8)
[2020-11-11 16:41] LABS: Bilirubin Negative (Negative); Blood, Urine Small (Negative); Clarity Clear (Clear); Glucose, Urine (Dipstick) Negative (Negative); Ketone, Urine Negative (Negative); Leukocyte Large (Negative); Nitrite Negative (Negative); Protein, Urine (Dipstick) Negative (Neg-Trace); Specific Gravity, Urine 1.015 (1.005-1.030); Urobilinogen 0.2 mg/dL (Less than 2); pH, Urine 6.5 (5.0-9.0)
[2020-11-11 17:11] LABS: Bacteria/HPF Rare-Few HPF (None Seen)
[2020-11-11 17:12] LABS: Urine Culture Reflex No No
[2020-11-11 17:47] LABS: SARS-CoV-2 NAA Rapid Test Not Detected (NotDetected)
[2020-11-11] MEDS: traZODone HCl 50 MG TAB PO SCH (20:51)
[2020-11-11] MEDS: Montelukast Sodium 10 mg Tablet PO SCH (20:52)
[2020-11-11] MEDS: Primidone 50 MG TAB PO SCH (20:52)
[2020-11-11] MEDS: Atorvastatin Calcium 40 MG TAB PO SCH (20:53)
[2020-11-11] MEDS: Lantus 1000 UNITS/10 ML VIAL SC SCH (20:53)
[2020-11-12] MEDS: Spironolactone 25 MG TAB PO SCH (08:41)
[2020-11-12] MEDS: Allopurinol 100 MG TAB PO SCH (08:41)
[2020-11-12] MEDS: Amlodipine 5 MG TAB PO SCH (08:41)
[2020-11-12] MEDS: Dicyclomine 20 MG TAB PO SCH ×4 (08:42→20:34)
[2020-11-12] MEDS: Carvedilol 25 MG TAB PO SCH ×2 (08:42→20:33)
[2020-11-12] MEDS: Aspirin 81 mg Enteric Coated Tablet PO SCH (08:42)
[2020-11-12] MEDS: Cholecalciferol 1,000 UNITS (25 MCG) TAB PO SCH (08:42)
[2020-11-12] MEDS: Furosemide 40 MG TAB PO SCH (08:43)
[2020-11-12] MEDS: Trospium 20 MG TAB PO SCH ×2 (08:43→20:33)
[2020-11-12] MEDS: Lisinopril 10 MG TAB PO SCH (08:43)
[2020-11-12] MEDS: Multivitamin W/ Minerals 1 TAB PO SCH (08:43)
[2020-11-12] MEDS: Venlafaxine HCl XR 75 MG CAP PO SCH (08:44)
[2020-11-12] MEDS: Atorvastatin Calcium 40 MG TAB PO SCH (20:33)
[2020-11-12] MEDS: traZODone HCl 50 MG TAB PO SCH (20:33)
[2020-11-12] MEDS: Primidone 50 MG TAB PO SCH (20:33)
[2020-11-12] MEDS: Lantus 1000 UNITS/10 ML VIAL SC SCH (20:34)
[2020-11-12] MEDS: Montelukast Sodium 10 mg Tablet PO SCH (20:34)
[2020-11-13] MEDS: Lisinopril 10 MG TAB PO SCH (09:14)
[2020-11-13] MEDS: Venlafaxine HCl XR 75 MG CAP PO SCH (09:14)
[2020-11-13] MEDS: Multivitamin W/ Minerals 1 TAB PO SCH (09:14)
[2020-11-13] MEDS: Dicyclomine 20 MG TAB PO SCH ×4 (09:14→20:29)
[2020-11-13] MEDS: Trospium 20 MG TAB PO SCH ×2 (09:14→20:28)
[2020-11-13] MEDS: Allopurinol 100 MG TAB PO SCH (09:15)
[2020-11-13] MEDS: Amlodipine 5 MG TAB PO SCH (09:15)
[2020-11-13] MEDS: Furosemide 40 MG TAB PO SCH (09:15)
[2020-11-13] MEDS: Spironolactone 25 MG TAB PO SCH (09:15)
[2020-11-13] MEDS: Carvedilol 25 MG TAB PO SCH ×2 (09:15→20:30)
[2020-11-13] MEDS: Aspirin 81 mg Enteric Coated Tablet PO SCH (09:15)
[2020-11-13] MEDS: Cholecalciferol 1,000 UNITS (25 MCG) TAB PO SCH (09:15)
[2020-11-13] MEDS: Montelukast Sodium 10 mg Tablet PO SCH (20:28)
[2020-11-13] MEDS: Lantus 1000 UNITS/10 ML VIAL SC SCH (20:28)
[2020-11-13] MEDS: traZODone HCl 50 MG TAB PO SCH (20:29)
[2020-11-13] MEDS: Atorvastatin Calcium 40 MG TAB PO SCH (20:30)
[2020-11-13] MEDS: Primidone 50 MG TAB PO SCH (20:30)
--- NOTE | 2020-11-14 05:48 | PRG ---
DATE OF SERVICE: 11/09/2020 SUBJECTIVE: The patient is sitting in bed, resting, talking with the family, feels well. She feels she is improving and ready for more therapy next week. Going home next week. OBJECTIVE: VITAL SIGNS: Temp is 98.8, pulse 76, respirations 20, O2 sats 94% on 2 L, blood pressure 129/58. LUNGS: Clear. CARDIAC: Regular rhythm. ABDOMEN: Soft and nontender. EXTREMITIES: Displayed no edema, clubbing, or cyanosis. ASSESSMENT: Resolving E coli bacteremia. Improving deconditioning. Persistent hypoxemia with chest x-ray showing no acute infiltrates. Recurrent diarrhea, possibly irritable bowel. Type 2 diabetes, controlled to goal. PLAN: Continue dicyclomine 3 times daily improving. Continue PT, OT starting next week. Wean off oxygen in the next several days. Continue to monitor vital signs closely. Job ID: [id number]
--- NOTE | 2020-11-14 05:49 | PRG ---
DATE OF SERVICE: 11/12/2020 SUBJECTIVE: The patient had an episode of diaphoresis, nausea yesterday. Was evaluated with a chest x-ray, which only showed pulmonary vascular congestion, no change . LABORATORY DATA: Showed a white count 8200 OBJECTIVE: LUNGS: Clear. CARDIAC: Shows regular rhythm. ABDOMEN: Soft and nontender. SKIN/EXTREMITIES: Show ASSESSMENT: 1. Improving deconditioning, working with therapy. 2. Current nausea, occasional diarrhea, felt to be irritable bowel. Continue to monitor. 3. Resolving E coli bacteremia. 4. Type 2 diabetes, controlled to goal. PLAN: 1. Continue PT, OT. Continue to attempt to wean off oxygen. Continue dicyclomine. Continue amlodipine, blood pressure control. 2. Continue Lantus 35 units at night for diabetic control. Job ID: [id number]
--- NOTE | 2020-11-14 05:49 | PRG ---
DATE OF SERVICE: 11/10/2020 SUBJECTIVE: The patient lying in bed, feels well, ready for therapy tomorrow, tolerating diuresis well with furosemide with stable vital signs. OBJECTIVE: VITAL SIGNS: Temperature is 98.2, pulse 73, respirations 18, O2 sats 93% on 2 L, blood pressure 119/53, LUNGS: Clear. CARDIAC: Shows regular rhythm. ASSESSMENT: 1. Improving deconditioning. 2. hypoxemia with pulmonary congestion on chest x-ray. We will continue furosemide. 3. Resolved E coli bacteremia. 4. Stable type 2 diabetes. 5. Possible irritable bowel, improved with dicyclomine. PLAN: 1. Continue PT, OT starting tomorrow again. 2. Continue dicyclomine. 3. Continue to wean off oxygen. 4. Continue Accu-Cheks to monitor and titrate and control diabetes. Job ID: [id number]
--- NOTE | 2020-11-14 06:23 | PRG ---
DATE OF SERVICE: 11/11/2020 SUBJECTIVE: The patient complains of some fatigue today and chills, but no cough. No diarrhea. Has had some nausea with no vomiting. LABORATORY DATA: White count 8200, hematocrit 35, and hemoglobin 11. Accu-Cheks ranged from 95 to 143. Urinalysis does show 11 to 20 white cells. OBJECTIVE: LUNGS: Clear. CARDIAC: Shows regular rhythm. ASSESSMENT: 1. Chill, possibly due to urinary tract infection. No symptoms of dysuria or hematuria. 2. Diastolic heart failure with persistent hypoxemia with inability to wean off oxygen. 3. Hypertension, controlled to goal. 4. Type 2 diabetes, controlled to goal. PLAN: 1. Urine culture and to monitor for recurrent urinary tract infection. Continue PT, OT. 2. Continue off antibiotics. 3. Continue to wean off oxygen. Job ID: [id number]
--- NOTE | 2020-11-14 06:49 | PRG ---
DATE OF SERVICE: 11/13/2020 SUBJECTIVE: The patient feels much better and cooperating with therapy with no complaints. Attempting to wean off oxygen, but still on 1 L of 95%. No shortness of breath or cough. No dysuria or hematuria. No nausea or chills. OBJECTIVE: VITAL SIGNS: Show temperature 97, pulse 77, respirations 20, O2 saturations 95% on 1 L, blood pressure 126/61. LUNGS: Clear. CARDIAC: Shows regular rhythm. ABDOMEN: Soft and nontender. LABORATORY DATA: Urine culture still pending. ASSESSMENT AND PLAN: 1. Resolved Escherichia coli bacteremia, off antibiotics, but with episode of chill. Pending urine culture after pyuria and bacteriuria. 2. Deconditioning, improving daily, but still requiring more therapy. 3. Coronary artery disease, status post angioplasty, asymptomatic. 4. Type 2 diabetes, controlled to goal. 5. Persistent hypoxemia, inability to wean off oxygen. We will attempt to wean for today and tomorrow. Job ID: [id number]
[2020-11-14] MEDS: Carvedilol 25 MG TAB PO SCH ×2 (08:28→20:52)
[2020-11-14] MEDS: Amlodipine 5 MG TAB PO SCH (08:28)
[2020-11-14] MEDS: Allopurinol 100 MG TAB PO SCH (08:28)
[2020-11-14] MEDS: Cholecalciferol 1,000 UNITS (25 MCG) TAB PO SCH (08:28)
[2020-11-14] MEDS: Trospium 20 MG TAB PO SCH ×2 (08:28→20:51)
[2020-11-14] MEDS: Multivitamin W/ Minerals 1 TAB PO SCH (08:28)
[2020-11-14] MEDS: Furosemide 40 MG TAB PO SCH (08:29)
[2020-11-14] MEDS: Spironolactone 25 MG TAB PO SCH (08:29)
[2020-11-14] MEDS: Aspirin 81 mg Enteric Coated Tablet PO SCH (08:29)
[2020-11-14] MEDS: Dicyclomine 20 MG TAB PO SCH ×4 (08:29→20:52)
[2020-11-14] MEDS: Venlafaxine HCl XR 75 MG CAP PO SCH (08:29)
[2020-11-14] MEDS: Lisinopril 10 MG TAB PO SCH (08:29)
[2020-11-14] MEDS: traZODone HCl 50 MG TAB PO SCH (20:51)
[2020-11-14] MEDS: Primidone 50 MG TAB PO SCH (20:51)
[2020-11-14] MEDS: Atorvastatin Calcium 40 MG TAB PO SCH (20:51)
[2020-11-14] MEDS: Montelukast Sodium 10 mg Tablet PO SCH (20:52)
[2020-11-14] MEDS: Lantus 1000 UNITS/10 ML VIAL SC SCH (20:52)
[2020-11-15] MEDS: Lisinopril 10 MG TAB PO SCH (09:01)
[2020-11-15] MEDS: Amlodipine 5 MG TAB PO SCH (09:01)
[2020-11-15] MEDS: Trospium 20 MG TAB PO SCH ×2 (09:01→20:52)
[2020-11-15] MEDS: Multivitamin W/ Minerals 1 TAB PO SCH (09:01)
[2020-11-15] MEDS: Aspirin 81 mg Enteric Coated Tablet PO SCH (09:01)
[2020-11-15] MEDS: Cholecalciferol 1,000 UNITS (25 MCG) TAB PO SCH (09:01)
[2020-11-15] MEDS: Furosemide 40 MG TAB PO SCH (09:01)
[2020-11-15] MEDS: Venlafaxine HCl XR 75 MG CAP PO SCH (09:01)
[2020-11-15] MEDS: Dicyclomine 20 MG TAB PO SCH ×4 (09:01→20:52)
[2020-11-15] MEDS: Allopurinol 100 MG TAB PO SCH (09:01)
[2020-11-15] MEDS: Carvedilol 25 MG TAB PO SCH ×2 (09:02→20:52)
[2020-11-15] MEDS: Spironolactone 25 MG TAB PO SCH (09:02)
[2020-11-15] MEDS: Atorvastatin Calcium 40 MG TAB PO SCH (20:51)
[2020-11-15] MEDS: traZODone HCl 50 MG TAB PO SCH (20:52)
[2020-11-15] MEDS: Primidone 50 MG TAB PO SCH (20:52)
[2020-11-15] MEDS: Montelukast Sodium 10 mg Tablet PO SCH (20:52)
[2020-11-15] MEDS: Lantus 1000 UNITS/10 ML VIAL SC SCH (20:55)
[2020-11-16] MEDS: Spironolactone 25 MG TAB PO SCH (08:19)
[2020-11-16] MEDS: Amlodipine 5 MG TAB PO SCH (08:19)
[2020-11-16] MEDS: Allopurinol 100 MG TAB PO SCH (08:19)
[2020-11-16] MEDS: Cholecalciferol 1,000 UNITS (25 MCG) TAB PO SCH (08:20)
[2020-11-16] MEDS: Dicyclomine 20 MG TAB PO SCH ×4 (08:20→20:36)
[2020-11-16] MEDS: Furosemide 40 MG TAB PO SCH (08:20)
[2020-11-16] MEDS: Lisinopril 10 MG TAB PO SCH (08:20)
[2020-11-16] MEDS: Aspirin 81 mg Enteric Coated Tablet PO SCH (08:20)
[2020-11-16] MEDS: Carvedilol 25 MG TAB PO SCH ×2 (08:20→20:35)
[2020-11-16] MEDS: Sulfameth/Trimethoprim DS 800-160mg TAB PO SCH ×2 (08:21→20:36)
[2020-11-16] MEDS: Venlafaxine HCl XR 75 MG CAP PO SCH (08:21)
[2020-11-16] MEDS: Trospium 20 MG TAB PO SCH ×2 (08:21→20:36)
[2020-11-16] MEDS: Multivitamin W/ Minerals 1 TAB PO SCH (08:21)
--- NOTE | 2020-11-16 08:38 | PRG ---
DATE OF SERVICE: 11/16/2020 SUBJECTIVE: The patient is doing well today with no complaints. She is just anticipating getting home next week and has decided to get back to her house. The patient has been weaned off O2 and is on room air. At this point, glucose has been doing well. Her urine culture returned MRSA sensitive to Bactrim and we will start her on this today for 5 days. REVIEW OF SYSTEMS: Denies any fever, cough, chills, congestion, nausea, vomiting, diarrhea, chest pain, or palpitations. OBJECTIVE: VITAL SIGNS: Today, temperature 98.6, pulse 75, respirations 18, O2 sats 94% to 96% on room air. Blood pressure range 119/60 to 129/60. OBJECTIVE: Well-appearing, well-developed 85-year-old female, lying in bed, in no acute distress. CARDIOVASCULAR: Regular rate and rhythm. No murmurs, gallops, or rubs. RESPIRATORY: Clear to auscultation bilaterally. No wheezes or rhonchi. ABDOMEN: Soft, nontender to palpation. Bowel sounds positive in all 4 quadrants. ASSESSMENT: 1. Resolved Escherichia coli bacteremia, now with methicillin-resistant Staphylococcus aureus urinary tract infection. Start Bactrim DS x5 days today. Monitor for any increase in fever or chills or any systemic symptoms. 2. Deconditioning, improving. 3. Coronary artery disease, status post angioplasty, asymptomatic. 4. Type 2 diabetes. CBG is well controlled. 5. Status post nasal cannula, weaned off to room air, doing well with no complaints. Job ID: [id number]
[2020-11-16] MEDS: Primidone 50 MG TAB PO SCH (20:36)
[2020-11-16] MEDS: Lantus 1000 UNITS/10 ML VIAL SC SCH (20:36)
[2020-11-16] MEDS: Atorvastatin Calcium 40 MG TAB PO SCH (20:36)
[2020-11-16] MEDS: Montelukast Sodium 10 mg Tablet PO SCH (20:36)
[2020-11-16] MEDS: traZODone HCl 50 MG TAB PO SCH (20:36)
[2020-11-17 06:16] LABS: #Basophils 0.1 thou/uL (0.0-0.2); #Eosinphils 0.5 thou/uL (0.0-0.7); #Lymphocytes 2.6 thou/uL (1.20-3.40); #Monocytes 1.1 thou/uL (0.11-0.59); #Neutrophils 3.5 thou/uL (1.40-6.50); %Eosinophils 5.9 % (0.0-10.0); %Lymphocytes 33.9 % (21.0-51.0); %Monocytes 14.4 % (0.0-10.0); %Neutrophils 44.8 % (42.0-75.0); Hemoglobin 11.4 g/dL (12.0-16.0); Mean Corpuscular HGB CONC 32.8 g/dL (32.0-36.0); Mean Corpuscular Volume 91.4 fL (78.0-98.0); Mean Platelet Volume 6.5 fL (7.4-10.4); Platelet Count 388 thou/uL (130-400); RBC Distribution Width 13.5 % (11.5-14.5); Red Blood Cell (RBC) Count 3.81 mill/uL (4.20-5.40); White Blood Cell (WBC) Count 7.8 thou/uL (4.8-10.8)
[2020-11-17 06:30] LABS: Anion Gap 17 mmol/L (10-20); BUN (Urea Nitrogen) 18 mg/dL (9.8-20.1); Calc. Creatinine Clearance 43 mL/min (70-130); Calcium 8.1 mg/dL (7.8-10.44); Carbon Dioxide 28 mmol/L (23-31); Chloride 97 mmol/L (98-107); Glucose 98 mg/dL (83-110); Sodium 138 mmol/L (136-145)
[2020-11-17] MEDS: Sulfameth/Trimethoprim DS 800-160mg TAB PO SCH ×2 (08:30→21:06)
[2020-11-17] MEDS: Spironolactone 25 MG TAB PO SCH (08:31)
[2020-11-17] MEDS: Allopurinol 100 MG TAB PO SCH (08:31)
[2020-11-17] MEDS: Amlodipine 5 MG TAB PO SCH (08:32)
[2020-11-17] MEDS: Aspirin 81 mg Enteric Coated Tablet PO SCH (08:32)
[2020-11-17] MEDS: Carvedilol 25 MG TAB PO SCH ×2 (08:32→21:07)
[2020-11-17] MEDS: Furosemide 40 MG TAB PO SCH (08:33)
[2020-11-17] MEDS: Cholecalciferol 1,000 UNITS (25 MCG) TAB PO SCH (08:33)
[2020-11-17] MEDS: Dicyclomine 20 MG TAB PO SCH ×4 (08:33→21:07)
[2020-11-17] MEDS: Lisinopril 10 MG TAB PO SCH (08:33)
[2020-11-17] MEDS: Trospium 20 MG TAB PO SCH ×2 (08:33→21:07)
[2020-11-17] MEDS: Venlafaxine HCl XR 75 MG CAP PO SCH (08:33)
[2020-11-17] MEDS: Multivitamin W/ Minerals 1 TAB PO SCH (08:33)
[2020-11-17] MEDS: traZODone HCl 50 MG TAB PO SCH (21:06)
[2020-11-17] MEDS: Montelukast Sodium 10 mg Tablet PO SCH (21:06)
[2020-11-17] MEDS: Lantus 1000 UNITS/10 ML VIAL SC SCH (21:08)
[2020-11-17] MEDS: Atorvastatin Calcium 40 MG TAB PO SCH (21:08)
[2020-11-17] MEDS: Primidone 50 MG TAB PO SCH (22:27)
[2020-11-18] MEDS: Cholecalciferol 1,000 UNITS (25 MCG) TAB PO SCH (08:00)
[2020-11-18] MEDS: Aspirin 81 mg Enteric Coated Tablet PO SCH (08:00)
[2020-11-18] MEDS: Venlafaxine HCl XR 75 MG CAP PO SCH (08:00)
[2020-11-18] MEDS: Furosemide 40 MG TAB PO SCH (08:00)
[2020-11-18] MEDS: Carvedilol 25 MG TAB PO SCH ×2 (08:01→20:51)
[2020-11-18] MEDS: Amlodipine 5 MG TAB PO SCH (08:01)
[2020-11-18] MEDS: Dicyclomine 20 MG TAB PO SCH ×4 (08:01→20:50)
[2020-11-18] MEDS: Lisinopril 10 MG TAB PO SCH (08:02)
[2020-11-18] MEDS: Trospium 20 MG TAB PO SCH ×2 (08:02→20:51)
[2020-11-18] MEDS: Multivitamin W/ Minerals 1 TAB PO SCH (08:02)
[2020-11-18] MEDS: Sulfameth/Trimethoprim DS 800-160mg TAB PO SCH ×2 (08:02→20:51)
[2020-11-18] MEDS: Allopurinol 100 MG TAB PO SCH (08:02)
[2020-11-18] MEDS: Spironolactone 25 MG TAB PO SCH (08:03)
--- NOTE | 2020-11-18 15:01 | PRG ---
DATE OF SERVICE: SUBJECTIVE: The patient feels well. States she is ready to go home and states that Occupational Therapy has said that she will probably be ready to go home tomorrow, as she has met all her parameters. OBJECTIVE: VITAL SIGNS: Temperature is 98.9, pulse is 87, respirations are 20, O2 saturations are 95% on room air with an increased pulse with exercise to 111, but continued normal saturation above 92%. LUNGS: Clear. CARDIAC: Shows regular rhythm. ABDOMEN: Soft, nontender. LABORATORY DATA: White count yesterday was 7800, hematocrit 34, hemoglobin 11. Sodium was 138, potassium 4.0, chloride 107, bicarb 28, BUN 18, creatinine 1.66, glucose 99 to 127. ASSESSMENT: 1. Resolving E coli bacteremia off antibiotics with recent urine culture showing methicillin-resistant Staph, responding to treatment with Bactrim DS twice daily. 2. Recurrent diarrhea, felt to be due to irritable bowel, improving daily. 3. Deconditioning improved greatly. 4. Coronary artery disease, asymptomatic. 5. Type 2 diabetes, controlled to goal. 6. Hypoxemia, resolved. PLAN: Discussed with therapy tomorrow and probably discharge tomorrow. Job ID: [id number]
[2020-11-18] MEDS: Lantus 1000 UNITS/10 ML VIAL SC SCH (20:51)
[2020-11-18] MEDS: traZODone HCl 50 MG TAB PO SCH (20:51)
[2020-11-18] MEDS: Atorvastatin Calcium 40 MG TAB PO SCH (20:51)
[2020-11-18] MEDS: Montelukast Sodium 10 mg Tablet PO SCH (20:51)
[2020-11-18] MEDS: Primidone 50 MG TAB PO SCH (23:25)
[2020-11-19] MEDS: Primidone 50 MG TAB PO SCH ×2 (02:03→21:03)
[2020-11-19] MEDS: Multivitamin W/ Minerals 1 TAB PO SCH (08:47)
[2020-11-19] MEDS: Allopurinol 100 MG TAB PO SCH (08:47)
[2020-11-19] MEDS: Cholecalciferol 1,000 UNITS (25 MCG) TAB PO SCH (08:48)
[2020-11-19] MEDS: Venlafaxine HCl XR 75 MG CAP PO SCH (08:48)
[2020-11-19] MEDS: Trospium 20 MG TAB PO SCH ×2 (08:48→21:03)
[2020-11-19] MEDS: Carvedilol 25 MG TAB PO SCH ×2 (08:49→21:02)
[2020-11-19] MEDS: Aspirin 81 mg Enteric Coated Tablet PO SCH (08:49)
[2020-11-19] MEDS: Lisinopril 10 MG TAB PO SCH (08:49)
[2020-11-19] MEDS: Dicyclomine 20 MG TAB PO SCH ×4 (08:49→21:02)
[2020-11-19] MEDS: Amlodipine 5 MG TAB PO SCH (08:49)
[2020-11-19] MEDS: Sulfameth/Trimethoprim DS 800-160mg TAB PO SCH ×2 (08:50→21:03)
[2020-11-19] MEDS: Spironolactone 25 MG TAB PO SCH (08:50)
[2020-11-19] MEDS: Furosemide 40 MG TAB PO SCH (08:50)
[2020-11-19] MEDS: Nystatin 500,000 UNITS/5 ML UDCUP SSW SCH ×4 (09:51→21:01)
[2020-11-19] MEDS: Atorvastatin Calcium 40 MG TAB PO SCH (21:02)
[2020-11-19] MEDS: traZODone HCl 50 MG TAB PO SCH (21:02)
[2020-11-19] MEDS: Montelukast Sodium 10 mg Tablet PO SCH (21:02)
[2020-11-19] MEDS: Lantus 1000 UNITS/10 ML VIAL SC SCH (21:03)
[2020-11-20 08:40] VITALS: BP 133/62; TEMP 98.1
[2020-11-20] MEDS ORDERED: Nystatin 500,000 UNITS/5 ML UDCUP SSW SCH (09:00)
[2020-11-20] MEDS: Amlodipine 5 MG TAB PO SCH (10:31)
[2020-11-20] MEDS: Spironolactone 25 MG TAB PO SCH (10:31)
[2020-11-20] MEDS: Allopurinol 100 MG TAB PO SCH (10:31)
[2020-11-20] MEDS: Aspirin 81 mg Enteric Coated Tablet PO SCH (10:32)
[2020-11-20] MEDS: Carvedilol 25 MG TAB PO SCH (10:33)
[2020-11-20] MEDS: Dicyclomine 20 MG TAB PO SCH (10:33)
[2020-11-20] MEDS: Cholecalciferol 1,000 UNITS (25 MCG) TAB PO SCH (10:33)
[2020-11-20] MEDS: Multivitamin W/ Minerals 1 TAB PO SCH (10:34)
[2020-11-20] MEDS: Furosemide 40 MG TAB PO SCH (10:34)
[2020-11-20] MEDS: Lisinopril 10 MG TAB PO SCH (10:34)
[2020-11-20] MEDS: Trospium 20 MG TAB PO SCH (10:35)
[2020-11-20] MEDS: Venlafaxine HCl XR 75 MG CAP PO SCH (10:35)
[2020-11-20] MEDS: Sulfameth/Trimethoprim DS 800-160mg TAB PO SCH (10:35)
== END 2020-11-20 11:23 | disposition home or self-care (01) | DRG 948 ==
LOC: NAV ACUTE 14:29
PROVIDERS: ADMIT Internal Medicine; ATTEND Internal Medicine
DX: R53.81 Other malaise (principal); I50.32 Chronic diastolic (congestive) heart failure; R78.81 Bacteremia; I25.10 Atherosclerotic heart disease of native coronary artery without angina pectoris; E11.9 Type 2 diabetes mellitus without complications; E66.01 Morbid (severe) obesity due to excess calories; I11.0 Hypertensive heart disease with heart failure; F32.9 Major depressive disorder, single episode, unspecified; M10.9 Gout, unspecified; F41.9 Anxiety disorder, unspecified; B96.20 Unspecified Escherichia coli [E. coli] as the cause of diseases classified elsewhere; J30.9 Allergic rhinitis, unspecified; R09.02 Hypoxemia; Z88.8 Allergy status to other drugs, medicaments and biological substances; Z90.710 Acquired absence of both cervix and uterus; Z95.5 Presence of coronary angioplasty implant and graft; Z88.0 Allergy status to penicillin; Z68.35 Body mass index [BMI] 35.0-35.9, adult; K58.0 Irritable bowel syndrome with diarrhea
CPT/HCPCS: 0240U; 36415; 36416; 71045; 80048; 80053; 81001; 83880; 85025; 87077; 87086; 87186; 87324; 87449; J1815

== ENCOUNTER 2022-04-24 15:10 | Inpatient (IN) | payer MEDICARE, BC ==
[2022-04-24] MEDS ORDERED: Acetaminophen 500 MG TAB PO PRN (20:55)
[2022-04-24] MEDS ORDERED: Dextrose 50% Abboject 50 ML SYRINGE SLOW IVP PRN (21:00)
[2022-04-24] MEDS ORDERED: HumaLOG 300 UNITS/3 ML VIAL SC PRN (21:00)
[2022-04-24] MEDS ORDERED: Dextrose 5% in Water 1,000 ML IV PRN (21:00)
[2022-04-24] MEDS: Carvedilol 25 MG TAB PO SCH (21:43)
[2022-04-24] MEDS: Trospium 20 MG TAB PO SCH (21:44)
[2022-04-24] MEDS: Atorvastatin Calcium 10 MG TAB PO SCH (21:44)
[2022-04-25 07:10] LABS: ALT (SGPT) 38 U/L (8-55); AST (SGOT) 34 U/L (5-34); Albumin 2.7 g/dL (3.4-4.8); Alkaline Phosphatase 75 U/L (40-110); Anion Gap 15 mmol/L (10-20); BUN (Urea Nitrogen) 13 mg/dL (9.8-20.1); Bilirubin, Total 0.4 mg/dL (0.2-1.2); Calc. Creatinine Clearance 71 mL/min (70-130); Calcium 8.7 mg/dL (7.8-10.44); Carbon Dioxide 22 mmol/L (23-31); Chloride 102 mmol/L (98-107); Globulin 3.6 g/dL (2.4-3.5); Glucose 120 mg/dL (83-110); Potassium 4.1 mmol/L (3.5-5.1); Protein, Total 6.3 g/dL (5.8-8.1); Sodium 135 mmol/L (136-145)
[2022-04-25 07:19] LABS: Hemoglobin 11.1 g/dL (12.0-16.0); Mean Corpuscular HGB CONC 30.5 g/dL (32.0-36.0); Mean Corpuscular Hemoglobin 29.4 pg (27.0-31.0); Mean Corpuscular Volume 96.3 fL (78.0-98.0); Mean Platelet Volume 7.5 fL (7.4-10.4); Platelet Count 303 thou/uL (130-400); RBC Distribution Width 13.2 % (11.5-14.5); Red Blood Cell (RBC) Count 3.76 mill/uL (4.20-5.40); White Blood Cell (WBC) Count 9.3 thou/uL (4.8-10.8)
[2022-04-25 07:40] LABS: Hypochromia SLIGHT = 6-15 cells (100X) (0-5/hpf); MDiff Complete? YES; Platelet Morphology Comment Appears Adequate
[2022-04-25 07:41] LABS: Eosinophils 2 % (0-10); Lymphocytes 30 % (21-51); Monocytes 10 % (0-10); Neutrophil 58 % (42-75)
[2022-04-25] MEDS: Venlafaxine HCl XR 75 MG CAP PO SCH (08:39)
[2022-04-25] MEDS: Allopurinol 100 MG TAB PO SCH (08:39)
[2022-04-25] MEDS: Cholecalciferol 1,000 UNITS (25 MCG) TAB PO SCH (08:40)
[2022-04-25] MEDS: Aspirin 325 mg Enteric Coated Tablet PO SCH (08:40)
[2022-04-25] MEDS: Lisinopril 10 MG TAB PO SCH (08:40)
[2022-04-25] MEDS: Multivitamin W/ Minerals 1 TAB PO SCH (08:40)
[2022-04-25] MEDS: Carvedilol 25 MG TAB PO SCH ×2 (08:41→21:13)
[2022-04-25] MEDS: Trospium 20 MG TAB PO SCH ×2 (08:41→21:13)
[2022-04-25] MEDS: Primidone 50 MG TAB PO SCH (08:41)
[2022-04-25] MEDS ORDERED: Bisacodyl 5 MG TAB PO PRN (10:58)
[2022-04-25] MEDS ORDERED: Guaifenesin DM 100-10/5 ML UDCUP PO PRN (10:58)
[2022-04-25] MEDS ORDERED: Bisacodyl 10 MG SUPP PR PRN (10:58)
[2022-04-25] MEDS ORDERED: Acetaminophen 650 MG Suppository PR PRN (10:58)
[2022-04-25] MEDS: HumaLOG 300 UNITS/3 ML VIAL SC PRN (11:48)
[2022-04-25] MEDS: Famotidine 20 MG TAB PO SCH (21:13)
[2022-04-25] MEDS: Atorvastatin Calcium 10 MG TAB PO SCH (21:13)
[2022-04-26] MEDS: Trospium 20 MG TAB PO SCH ×2 (08:46→21:06)
[2022-04-26] MEDS: Venlafaxine HCl XR 75 MG CAP PO SCH (08:46)
[2022-04-26] MEDS: Aspirin 325 mg Enteric Coated Tablet PO SCH (08:46)
[2022-04-26] MEDS: Allopurinol 100 MG TAB PO SCH (08:46)
[2022-04-26] MEDS: Famotidine 20 MG TAB PO SCH ×2 (08:46→21:06)
[2022-04-26] MEDS: Lisinopril 10 MG TAB PO SCH (08:47)
[2022-04-26] MEDS: Cholecalciferol 1,000 UNITS (25 MCG) TAB PO SCH (08:47)
[2022-04-26] MEDS: Primidone 50 MG TAB PO SCH (08:47)
[2022-04-26] MEDS: Carvedilol 25 MG TAB PO SCH ×2 (08:47→21:06)
[2022-04-26] MEDS: Multivitamin W/ Minerals 1 TAB PO SCH (08:47)
[2022-04-26] MEDS: Acetaminophen 325 MG TAB PO PRN (08:59)
[2022-04-26] MEDS: HumaLOG 300 UNITS/3 ML VIAL SC PRN (12:14)
[2022-04-26] MEDS: Atorvastatin Calcium 10 MG TAB PO SCH (21:07)
[2022-04-27] MEDS: Acetaminophen 325 MG TAB PO PRN (00:31)
[2022-04-27] MEDS: Trospium 20 MG TAB PO SCH ×2 (09:16→20:37)
[2022-04-27] MEDS: Aspirin 325 mg Enteric Coated Tablet PO SCH (09:16)
[2022-04-27] MEDS: Venlafaxine HCl XR 75 MG CAP PO SCH (09:16)
[2022-04-27] MEDS: Multivitamin W/ Minerals 1 TAB PO SCH (09:16)
[2022-04-27] MEDS: Allopurinol 100 MG TAB PO SCH (09:16)
[2022-04-27] MEDS: Cholecalciferol 1,000 UNITS (25 MCG) TAB PO SCH (09:16)
[2022-04-27] MEDS: Famotidine 20 MG TAB PO SCH ×2 (09:17→20:37)
[2022-04-27] MEDS: Lisinopril 10 MG TAB PO SCH (09:17)
[2022-04-27] MEDS: Primidone 50 MG TAB PO SCH (09:17)
[2022-04-27] MEDS: Carvedilol 25 MG TAB PO SCH ×2 (09:17→20:37)
[2022-04-27] MEDS: HumaLOG 300 UNITS/3 ML VIAL SC PRN (17:19)
[2022-04-27] MEDS: Atorvastatin Calcium 10 MG TAB PO SCH (20:36)
[2022-04-28] MEDS ORDERED: Iopamidol 370 76% 100 ML VIAL ONE (09:00)
[2022-04-28] MEDS ORDERED: diphenhydrAMINE 25 MG CAP PO PRN (09:44)
[2022-04-28] MEDS: Cholecalciferol 1,000 UNITS (25 MCG) TAB PO SCH (09:45)
[2022-04-28] MEDS ORDERED: EPINEPHrine 1 MG/ML AMP IM PRN (09:45)
[2022-04-28] MEDS: Allopurinol 100 MG TAB PO SCH (09:45)
[2022-04-28] MEDS: Lisinopril 10 MG TAB PO SCH (09:45)
[2022-04-28] MEDS: Primidone 50 MG TAB PO SCH (09:45)
[2022-04-28] MEDS: Multivitamin W/ Minerals 1 TAB PO SCH (09:45)
[2022-04-28] MEDS: Trospium 20 MG TAB PO SCH ×2 (09:45→20:41)
[2022-04-28] MEDS: Venlafaxine HCl XR 75 MG CAP PO SCH (09:45)
[2022-04-28] MEDS: Aspirin 325 mg Enteric Coated Tablet PO SCH (09:45)
[2022-04-28] MEDS: Carvedilol 25 MG TAB PO SCH ×2 (09:45→20:41)
[2022-04-28] MEDS: Famotidine 20 MG TAB PO SCH ×2 (09:45→20:41)
[2022-04-28] MEDS: Acetaminophen 325 MG TAB PO PRN (09:48)
[2022-04-28] MEDS: HumaLOG 300 UNITS/3 ML VIAL SC PRN ×2 (12:14→17:17)
[2022-04-28] MEDS: Atorvastatin Calcium 10 MG TAB PO SCH (20:42)
[2022-04-29] MEDS: Acetaminophen 325 MG TAB PO PRN (09:22)
[2022-04-29] MEDS: Primidone 50 MG TAB PO SCH (09:25)
[2022-04-29] MEDS: Carvedilol 25 MG TAB PO SCH ×2 (09:25→20:45)
[2022-04-29] MEDS: Famotidine 20 MG TAB PO SCH ×2 (09:25→20:45)
[2022-04-29] MEDS: Venlafaxine HCl XR 75 MG CAP PO SCH (09:25)
[2022-04-29] MEDS: Multivitamin W/ Minerals 1 TAB PO SCH (09:25)
[2022-04-29] MEDS: Cholecalciferol 1,000 UNITS (25 MCG) TAB PO SCH (09:25)
[2022-04-29] MEDS: Trospium 20 MG TAB PO SCH ×2 (09:25→20:46)
[2022-04-29] MEDS: Allopurinol 100 MG TAB PO SCH (09:25)
[2022-04-29] MEDS: Lisinopril 10 MG TAB PO SCH (09:25)
[2022-04-29] MEDS: Aspirin 325 mg Enteric Coated Tablet PO SCH (09:25)
[2022-04-29] MEDS: Atorvastatin Calcium 10 MG TAB PO SCH (20:45)
[2022-04-30] MEDS: Lisinopril 10 MG TAB PO SCH (09:28)
[2022-04-30] MEDS: Venlafaxine HCl XR 75 MG CAP PO SCH (09:29)
[2022-04-30] MEDS: Cholecalciferol 1,000 UNITS (25 MCG) TAB PO SCH (09:29)
[2022-04-30] MEDS: Multivitamin W/ Minerals 1 TAB PO SCH (09:29)
[2022-04-30] MEDS: Aspirin 325 mg Enteric Coated Tablet PO SCH (09:29)
[2022-04-30] MEDS: Primidone 50 MG TAB PO SCH (09:30)
[2022-04-30] MEDS: Carvedilol 25 MG TAB PO SCH ×2 (09:30→21:07)
[2022-04-30] MEDS: Trospium 20 MG TAB PO SCH ×2 (09:30→21:06)
[2022-04-30] MEDS: Allopurinol 100 MG TAB PO SCH (09:30)
[2022-04-30] MEDS: Famotidine 20 MG TAB PO SCH ×2 (09:30→21:07)
[2022-04-30] MEDS: Senokot S 8.6-50 MG TAB PO PRN (16:29)
[2022-04-30] MEDS: Acetaminophen 325 MG TAB PO PRN (16:29)
[2022-04-30] MEDS: Atorvastatin Calcium 10 MG TAB PO SCH (21:06)
[2022-05-01 06:13] LABS: #Eosinphils 0.1 thou/uL (0.0-0.7); #Lymphocytes 3.1 thou/uL (1.20-3.40); #Neutrophils 3.9 thou/uL (1.40-6.50); %Basophils 0.5 % (0.0-1.0); %Eosinophils 0.8 % (0.0-10.0); %Lymphocytes 38.3 % (21.0-51.0); %Monocytes 12.1 % (0.0-10.0); %Neutrophils 48.3 % (42.0-75.0); Hemoglobin 10.8 g/dL (12.0-16.0); Mean Corpuscular HGB CONC 31.1 g/dL (32.0-36.0); Mean Corpuscular Hemoglobin 29.5 pg (27.0-31.0); Mean Corpuscular Volume 94.8 fL (78.0-98.0); Mean Platelet Volume 6.4 fL (7.4-10.4); Platelet Count 409 thou/uL (130-400); RBC Distribution Width 13.5 % (11.5-14.5); Red Blood Cell (RBC) Count 3.66 mill/uL (4.20-5.40); White Blood Cell (WBC) Count 8.2 thou/uL (4.8-10.8)
[2022-05-01 06:24] LABS: Anion Gap 16 mmol/L (10-20); BUN (Urea Nitrogen) 13 mg/dL (9.8-20.1); Calc. Creatinine Clearance 54 mL/min (70-130); Calcium 8.6 mg/dL (7.8-10.44); Carbon Dioxide 26 mmol/L (23-31); Chloride 101 mmol/L (98-107); Estimated GFR 47; Glucose 125 mg/dL (83-110); Potassium 3.8 mmol/L (3.5-5.1); Sodium 139 mmol/L (136-145)
[2022-05-01] MEDS: Cholecalciferol 1,000 UNITS (25 MCG) TAB PO SCH (08:30)
[2022-05-01] MEDS: Venlafaxine HCl XR 75 MG CAP PO SCH (08:30)
[2022-05-01] MEDS: Aspirin 325 mg Enteric Coated Tablet PO SCH (08:30)
[2022-05-01] MEDS: Lisinopril 10 MG TAB PO SCH (08:31)
[2022-05-01] MEDS: Carvedilol 25 MG TAB PO SCH ×2 (08:31→21:06)
[2022-05-01] MEDS: Trospium 20 MG TAB PO SCH ×2 (08:31→21:06)
[2022-05-01] MEDS: Allopurinol 100 MG TAB PO SCH (08:31)
[2022-05-01] MEDS: Famotidine 20 MG TAB PO SCH ×2 (08:31→21:06)
[2022-05-01] MEDS: Multivitamin W/ Minerals 1 TAB PO SCH (08:31)
[2022-05-01] MEDS: Primidone 50 MG TAB PO SCH (08:32)
[2022-05-01] MEDS: Acetaminophen 325 MG TAB PO PRN (08:39)
[2022-05-01] MEDS: Atorvastatin Calcium 10 MG TAB PO SCH (21:06)
[2022-05-02] MEDS: Famotidine 20 MG TAB PO SCH ×2 (08:57→20:41)
[2022-05-02] MEDS: Venlafaxine HCl XR 75 MG CAP PO SCH (08:57)
[2022-05-02] MEDS: Trospium 20 MG TAB PO SCH ×2 (08:57→20:41)
[2022-05-02] MEDS: Cholecalciferol 1,000 UNITS (25 MCG) TAB PO SCH (08:58)
[2022-05-02] MEDS: Aspirin 325 mg Enteric Coated Tablet PO SCH (08:58)
[2022-05-02] MEDS: Primidone 50 MG TAB PO SCH (08:58)
[2022-05-02] MEDS: Carvedilol 25 MG TAB PO SCH ×2 (08:58→20:41)
[2022-05-02] MEDS: Lisinopril 10 MG TAB PO SCH (08:58)
[2022-05-02] MEDS: Multivitamin W/ Minerals 1 TAB PO SCH (08:58)
[2022-05-02] MEDS: Allopurinol 100 MG TAB PO SCH (08:58)
[2022-05-02] MEDS: Atorvastatin Calcium 10 MG TAB PO SCH (20:41)
[2022-05-03 06:06] LABS: #Basophils 0.1 thou/uL (0.0-0.2); #Eosinphils 0.1 thou/uL (0.0-0.7); #Lymphocytes 2.8 thou/uL (1.20-3.40); #Monocytes 0.8 thou/uL (0.11-0.59); #Neutrophils 4.2 thou/uL (1.40-6.50); %Basophils 0.8 % (0.0-1.0); %Eosinophils 1.2 % (0.0-10.0); %Lymphocytes 35.3 % (21.0-51.0); %Monocytes 10.3 % (0.0-10.0); %Neutrophils 52.4 % (42.0-75.0); Hemoglobin 11.2 g/dL (12.0-16.0); Mean Corpuscular HGB CONC 30.8 g/dL (32.0-36.0); Mean Corpuscular Hemoglobin 29.7 pg (27.0-31.0); Mean Corpuscular Volume 96.2 fL (78.0-98.0); Mean Platelet Volume 5.4 fL (7.4-10.4); Platelet Count 306 thou/uL (130-400); RBC Distribution Width 13.8 % (11.5-14.5); Red Blood Cell (RBC) Count 3.79 mill/uL (4.20-5.40); White Blood Cell (WBC) Count 7.9 thou/uL (4.8-10.8)
[2022-05-03 06:10] LABS: Anion Gap 18 mmol/L (10-20); BUN (Urea Nitrogen) 13 mg/dL (9.8-20.1); Calc. Creatinine Clearance 49 mL/min (70-130); Calcium 8.5 mg/dL (7.8-10.44); Carbon Dioxide 25 mmol/L (23-31); Chloride 101 mmol/L (98-107); Estimated GFR 42; Glucose 115 mg/dL (83-110); Potassium 3.6 mmol/L (3.5-5.1); Sodium 140 mmol/L (136-145)
[2022-05-03] MEDS: Multivitamin W/ Minerals 1 TAB PO SCH (09:14)
[2022-05-03] MEDS: Aspirin 325 mg Enteric Coated Tablet PO SCH (09:14)
[2022-05-03] MEDS: Famotidine 20 MG TAB PO SCH (09:14)
[2022-05-03] MEDS: Lisinopril 10 MG TAB PO SCH (09:14)
[2022-05-03] MEDS: Carvedilol 25 MG TAB PO SCH ×2 (09:14→20:22)
[2022-05-03] MEDS: Venlafaxine HCl XR 75 MG CAP PO SCH (09:14)
[2022-05-03] MEDS: Allopurinol 100 MG TAB PO SCH (09:15)
[2022-05-03] MEDS: Primidone 50 MG TAB PO SCH (09:15)
[2022-05-03] MEDS: Cholecalciferol 1,000 UNITS (25 MCG) TAB PO SCH (09:15)
[2022-05-03] MEDS: Trospium 20 MG TAB PO SCH ×2 (09:15→20:22)
[2022-05-03] MEDS: Nystatin Powder 15 GM BOT TOP PRN (20:21)
[2022-05-03] MEDS: Atorvastatin Calcium 10 MG TAB PO SCH (20:22)
[2022-05-04 06:05] LABS: #Basophils 0.1 thou/uL (0.0-0.2); #Eosinphils 0.1 thou/uL (0.0-0.7); #Lymphocytes 2.9 thou/uL (1.20-3.40); #Monocytes 1.1 thou/uL (0.11-0.59); #Neutrophils 4.4 thou/uL (1.40-6.50); %Basophils 0.7 % (0.0-1.0); %Lymphocytes 33.9 % (21.0-51.0); %Monocytes 13.1 % (0.0-10.0); %Neutrophils 51.4 % (42.0-75.0); Hemoglobin 11.7 g/dL (12.0-16.0); Mean Corpuscular HGB CONC 31.3 g/dL (32.0-36.0); Mean Corpuscular Hemoglobin 29.7 pg (27.0-31.0); Mean Corpuscular Volume 94.9 fL (78.0-98.0); Mean Platelet Volume 6.3 fL (7.4-10.4); Platelet Count 396 thou/uL (130-400); Red Blood Cell (RBC) Count 3.95 mill/uL (4.20-5.40); White Blood Cell (WBC) Count 8.5 thou/uL (4.8-10.8)
[2022-05-04 06:15] LABS: Anion Gap 17 mmol/L (10-20); BUN (Urea Nitrogen) 12 mg/dL (9.8-20.1); Calc. Creatinine Clearance 53 mL/min (70-130); Calcium 8.5 mg/dL (7.8-10.44); Carbon Dioxide 25 mmol/L (23-31); Chloride 98 mmol/L (98-107); Estimated GFR 47; Glucose 125 mg/dL (83-110); Potassium 3.7 mmol/L (3.5-5.1); Sodium 136 mmol/L (136-145)
[2022-05-04] MEDS: Trospium 20 MG TAB PO SCH ×2 (09:17→21:04)
[2022-05-04] MEDS: Multivitamin W/ Minerals 1 TAB PO SCH (09:17)
[2022-05-04] MEDS: Aspirin 325 mg Enteric Coated Tablet PO SCH (09:17)
[2022-05-04] MEDS: Venlafaxine HCl XR 75 MG CAP PO SCH (09:17)
[2022-05-04] MEDS: Famotidine 20 MG TAB PO SCH (09:17)
[2022-05-04] MEDS: Lisinopril 10 MG TAB PO SCH (09:20)
[2022-05-04] MEDS: Carvedilol 25 MG TAB PO SCH ×2 (09:21→21:06)
[2022-05-04] MEDS: Cholecalciferol 1,000 UNITS (25 MCG) TAB PO SCH (09:21)
[2022-05-04] MEDS: Primidone 50 MG TAB PO SCH (09:21)
[2022-05-04] MEDS: Allopurinol 100 MG TAB PO SCH (09:21)
[2022-05-04] MEDS: Acetaminophen 325 MG TAB PO PRN (11:25)
[2022-05-04] MEDS: Polyethylene Glycol OPTH DROP 15 ML BOT EA EYE PRN (14:15)
[2022-05-04] MEDS: Senokot S 8.6-50 MG TAB PO PRN (14:56)
[2022-05-04] MEDS: Atorvastatin Calcium 10 MG TAB PO SCH (21:04)
[2022-05-05] MEDS: Aspirin 325 mg Enteric Coated Tablet PO SCH (08:18)
[2022-05-05] MEDS: Famotidine 20 MG TAB PO SCH (08:18)
[2022-05-05] MEDS: Lisinopril 10 MG TAB PO SCH (08:18)
[2022-05-05] MEDS: Allopurinol 100 MG TAB PO SCH (08:18)
[2022-05-05] MEDS: Cholecalciferol 1,000 UNITS (25 MCG) TAB PO SCH (08:19)
[2022-05-05] MEDS: Multivitamin W/ Minerals 1 TAB PO SCH (08:19)
[2022-05-05] MEDS: Venlafaxine HCl XR 75 MG CAP PO SCH (08:19)
[2022-05-05] MEDS: Carvedilol 25 MG TAB PO SCH ×2 (08:19→21:21)
[2022-05-05] MEDS: Primidone 50 MG TAB PO SCH (08:20)
[2022-05-05] MEDS: Trospium 20 MG TAB PO SCH ×2 (08:20→21:21)
[2022-05-05] MEDS: Polyethylene Glycol OPTH DROP 15 ML BOT EA EYE PRN ×2 (08:20→21:21)
[2022-05-05] MEDS: Atorvastatin Calcium 10 MG TAB PO SCH (21:21)
[2022-05-06] MEDS: Allopurinol 100 MG TAB PO SCH (08:14)
[2022-05-06] MEDS: Primidone 50 MG TAB PO SCH (08:15)
[2022-05-06] MEDS: Famotidine 20 MG TAB PO SCH (08:15)
[2022-05-06] MEDS: Multivitamin W/ Minerals 1 TAB PO SCH (08:15)
[2022-05-06] MEDS: Aspirin 325 mg Enteric Coated Tablet PO SCH (08:15)
[2022-05-06] MEDS: Lisinopril 10 MG TAB PO SCH (08:15)
[2022-05-06] MEDS: Carvedilol 25 MG TAB PO SCH ×2 (08:16→21:07)
[2022-05-06] MEDS: Cholecalciferol 1,000 UNITS (25 MCG) TAB PO SCH (08:16)
[2022-05-06] MEDS: Venlafaxine HCl XR 75 MG CAP PO SCH (08:16)
[2022-05-06] MEDS: Trospium 20 MG TAB PO SCH ×2 (08:16→21:07)
[2022-05-06] MEDS: Polyethylene Glycol OPTH DROP 15 ML BOT EA EYE PRN ×2 (08:26→21:07)
[2022-05-06] MEDS: Acetaminophen 325 MG TAB PO PRN (16:06)
[2022-05-06] MEDS: Atorvastatin Calcium 10 MG TAB PO SCH (21:07)
[2022-05-07 06:16] LABS: #Basophils 0.1 thou/uL (0.0-0.2); #Eosinphils 0.1 thou/uL (0.0-0.7); #Lymphocytes 3.1 thou/uL (1.20-3.40); %Basophils 0.7 % (0.0-1.0); %Eosinophils 1.7 % (0.0-10.0); %Lymphocytes 36.9 % (21.0-51.0); %Monocytes 12.5 % (0.0-10.0); %Neutrophils 48.2 % (42.0-75.0); Hemoglobin 10.6 g/dL (12.0-16.0); Mean Corpuscular HGB CONC 29.4 g/dL (32.0-36.0); Mean Corpuscular Volume 98.6 fL (78.0-98.0); Mean Platelet Volume 6.7 fL (7.4-10.4); Platelet Count 361 thou/uL (130-400); RBC Distribution Width 14.7 % (11.5-14.5); Red Blood Cell (RBC) Count 3.67 mill/uL (4.20-5.40); White Blood Cell (WBC) Count 8.3 thou/uL (4.8-10.8)
[2022-05-07 06:44] LABS: Anion Gap 17 mmol/L (10-20); BUN (Urea Nitrogen) 20 mg/dL (9.8-20.1); Calc. Creatinine Clearance 52 mL/min (70-130); Calcium 8.4 mg/dL (7.8-10.44); Carbon Dioxide 24 mmol/L (23-31); Chloride 101 mmol/L (98-107); Estimated GFR 45; Glucose 127 mg/dL (83-110); Potassium 3.9 mmol/L (3.5-5.1); Sodium 138 mmol/L (136-145)
[2022-05-07] MEDS: Aspirin 325 mg Enteric Coated Tablet PO SCH (09:13)
[2022-05-07] MEDS: Venlafaxine HCl XR 75 MG CAP PO SCH (09:13)
[2022-05-07] MEDS: Allopurinol 100 MG TAB PO SCH (09:14)
[2022-05-07] MEDS: Carvedilol 25 MG TAB PO SCH ×2 (09:14→20:58)
[2022-05-07] MEDS: Primidone 50 MG TAB PO SCH (09:14)
[2022-05-07] MEDS: Cholecalciferol 1,000 UNITS (25 MCG) TAB PO SCH (09:14)
[2022-05-07] MEDS: Lisinopril 10 MG TAB PO SCH (09:14)
[2022-05-07] MEDS: Trospium 20 MG TAB PO SCH ×2 (09:14→20:57)
[2022-05-07] MEDS: Multivitamin W/ Minerals 1 TAB PO SCH (09:14)
[2022-05-07] MEDS: Famotidine 20 MG TAB PO SCH (09:16)
[2022-05-07] MEDS: Atorvastatin Calcium 10 MG TAB PO SCH (20:58)
[2022-05-08] MEDS: Acetaminophen 325 MG TAB PO PRN (08:40)
[2022-05-08] MEDS: Multivitamin W/ Minerals 1 TAB PO SCH (08:41)
[2022-05-08] MEDS: Venlafaxine HCl XR 75 MG CAP PO SCH (08:41)
[2022-05-08] MEDS: Trospium 20 MG TAB PO SCH ×2 (08:42→20:28)
[2022-05-08] MEDS: Cholecalciferol 1,000 UNITS (25 MCG) TAB PO SCH (08:42)
[2022-05-08] MEDS: Famotidine 20 MG TAB PO SCH (08:42)
[2022-05-08] MEDS: Aspirin 325 mg Enteric Coated Tablet PO SCH (08:42)
[2022-05-08] MEDS: Carvedilol 25 MG TAB PO SCH ×2 (08:42→20:28)
[2022-05-08] MEDS: Primidone 50 MG TAB PO SCH (08:42)
[2022-05-08] MEDS: Allopurinol 100 MG TAB PO SCH (08:43)
[2022-05-08] MEDS: Lisinopril 10 MG TAB PO SCH (08:43)
[2022-05-08] MEDS: Polyethylene Glycol OPTH DROP 15 ML BOT EA EYE PRN (08:44)
[2022-05-08] MEDS: Nystatin Powder 15 GM BOT TOP PRN (08:44)
[2022-05-08] MEDS: HumaLOG 300 UNITS/3 ML VIAL SC PRN (17:36)
[2022-05-08] MEDS: Atorvastatin Calcium 10 MG TAB PO SCH (20:28)
[2022-05-09] MEDS: Primidone 50 MG TAB PO SCH (08:10)
[2022-05-09] MEDS: Carvedilol 25 MG TAB PO SCH ×2 (08:10→20:37)
[2022-05-09] MEDS: Aspirin 325 mg Enteric Coated Tablet PO SCH (08:10)
[2022-05-09] MEDS: Famotidine 20 MG TAB PO SCH (08:11)
[2022-05-09] MEDS: Trospium 20 MG TAB PO SCH ×2 (08:11→20:37)
[2022-05-09] MEDS: Venlafaxine HCl XR 75 MG CAP PO SCH (08:11)
[2022-05-09] MEDS: Cholecalciferol 1,000 UNITS (25 MCG) TAB PO SCH (08:11)
[2022-05-09] MEDS: Multivitamin W/ Minerals 1 TAB PO SCH (08:11)
[2022-05-09] MEDS: Allopurinol 100 MG TAB PO SCH (08:12)
[2022-05-09] MEDS: Lisinopril 10 MG TAB PO SCH (08:12)
[2022-05-09] MEDS: Polyethylene Glycol OPTH DROP 15 ML BOT EA EYE PRN (08:13)
[2022-05-09] MEDS: Atorvastatin Calcium 10 MG TAB PO SCH (20:37)
[2022-05-10] MEDS: Acetaminophen 325 MG TAB PO PRN ×2 (05:45→12:30)
[2022-05-10 05:51] LABS: #Basophils 0.1 thou/uL (0.0-0.2); #Eosinphils 0.2 thou/uL (0.0-0.7); #Lymphocytes 3.3 thou/uL (1.20-3.40); #Monocytes 1.3 thou/uL (0.11-0.59); #Neutrophils 3.9 thou/uL (1.40-6.50); %Basophils 1.1 % (0.0-1.0); %Eosinophils 2.1 % (0.0-10.0); %Lymphocytes 37.6 % (21.0-51.0); %Monocytes 14.9 % (0.0-10.0); %Neutrophils 44.4 % (42.0-75.0); Hemoglobin 10.4 g/dL (12.0-16.0); Mean Corpuscular HGB CONC 30.3 g/dL (32.0-36.0); Mean Corpuscular Hemoglobin 29.4 pg (27.0-31.0); Mean Corpuscular Volume 96.9 fL (78.0-98.0); Mean Platelet Volume 7.1 fL (7.4-10.4); Platelet Count 321 thou/uL (130-400); RBC Distribution Width 14.3 % (11.5-14.5); Red Blood Cell (RBC) Count 3.54 mill/uL (4.20-5.40); White Blood Cell (WBC) Count 8.9 thou/uL (4.8-10.8)
[2022-05-10 05:57] LABS: Anion Gap 15 mmol/L (10-20); BUN (Urea Nitrogen) 15 mg/dL (9.8-20.1); Calc. Creatinine Clearance 72 mL/min (70-130); Calcium 8.1 mg/dL (7.8-10.44); Carbon Dioxide 24 mmol/L (23-31); Chloride 99 mmol/L (98-107); Estimated GFR 66; Glucose 138 mg/dL (83-110); Sodium 134 mmol/L (136-145)
[2022-05-10] MEDS: Famotidine 20 MG TAB PO SCH (08:33)
[2022-05-10] MEDS: Multivitamin W/ Minerals 1 TAB PO SCH (08:33)
[2022-05-10] MEDS: Lisinopril 10 MG TAB PO SCH (08:33)
[2022-05-10] MEDS: Trospium 20 MG TAB PO SCH ×2 (08:33→20:37)
[2022-05-10] MEDS: Venlafaxine HCl XR 75 MG CAP PO SCH (08:33)
[2022-05-10] MEDS: Carvedilol 25 MG TAB PO SCH ×2 (08:33→20:36)
[2022-05-10] MEDS: Allopurinol 100 MG TAB PO SCH (08:33)
[2022-05-10] MEDS: Primidone 50 MG TAB PO SCH (08:33)
[2022-05-10] MEDS: Cholecalciferol 1,000 UNITS (25 MCG) TAB PO SCH (08:34)
[2022-05-10] MEDS: Polyethylene Glycol OPTH DROP 15 ML BOT EA EYE PRN (08:34)
[2022-05-10] MEDS: Aspirin 325 mg Enteric Coated Tablet PO SCH (08:34)
[2022-05-10] MEDS: Atorvastatin Calcium 10 MG TAB PO SCH (20:37)
[2022-05-11] MEDS: HumaLOG 300 UNITS/3 ML VIAL SC PRN (05:34)
[2022-05-11] MEDS: Primidone 50 MG TAB PO SCH (08:18)
[2022-05-11] MEDS: Venlafaxine HCl XR 75 MG CAP PO SCH (08:18)
[2022-05-11] MEDS: Carvedilol 25 MG TAB PO SCH ×2 (08:18→20:54)
[2022-05-11] MEDS: Trospium 20 MG TAB PO SCH ×2 (08:18→20:54)
[2022-05-11] MEDS: Cholecalciferol 1,000 UNITS (25 MCG) TAB PO SCH (08:18)
[2022-05-11] MEDS: Aspirin 325 mg Enteric Coated Tablet PO SCH (08:18)
[2022-05-11] MEDS: Multivitamin W/ Minerals 1 TAB PO SCH (08:19)
[2022-05-11] MEDS: Famotidine 20 MG TAB PO SCH (08:19)
[2022-05-11] MEDS: Polyethylene Glycol OPTH DROP 15 ML BOT EA EYE PRN (08:19)
[2022-05-11] MEDS: Allopurinol 100 MG TAB PO SCH (08:19)
[2022-05-11] MEDS: Lisinopril 10 MG TAB PO SCH (08:19)
[2022-05-11] MEDS: Atorvastatin Calcium 10 MG TAB PO SCH (20:54)
[2022-05-12] MEDS: Famotidine 20 MG TAB PO SCH (08:31)
[2022-05-12] MEDS: Cholecalciferol 1,000 UNITS (25 MCG) TAB PO SCH (08:31)
[2022-05-12] MEDS: Venlafaxine HCl XR 75 MG CAP PO SCH (08:31)
[2022-05-12] MEDS: Allopurinol 100 MG TAB PO SCH (08:31)
[2022-05-12] MEDS: Trospium 20 MG TAB PO SCH ×2 (08:31→21:27)
[2022-05-12] MEDS: Carvedilol 25 MG TAB PO SCH ×2 (08:31→21:27)
[2022-05-12] MEDS: Primidone 50 MG TAB PO SCH (08:32)
[2022-05-12] MEDS: Acetaminophen 325 MG TAB PO PRN (08:32)
[2022-05-12] MEDS: Lisinopril 10 MG TAB PO SCH (08:32)
[2022-05-12] MEDS: Multivitamin W/ Minerals 1 TAB PO SCH (08:32)
[2022-05-12] MEDS: Polyethylene Glycol OPTH DROP 15 ML BOT EA EYE PRN ×2 (08:33→21:29)
[2022-05-12] MEDS: Aspirin 325 mg Enteric Coated Tablet PO SCH (08:33)
[2022-05-12] MEDS: Atorvastatin Calcium 10 MG TAB PO SCH (21:27)
[2022-05-13 06:03] LABS: #Basophils 0.1 thou/uL (0.0-0.2); #Eosinphils 0.3 thou/uL (0.0-0.7); #Lymphocytes 3.2 thou/uL (1.20-3.40); #Monocytes 0.9 thou/uL (0.11-0.59); #Neutrophils 3.5 thou/uL (1.40-6.50); %Basophils 0.9 % (0.0-1.0); %Eosinophils 3.7 % (0.0-10.0); %Lymphocytes 40.9 % (21.0-51.0); %Monocytes 10.9 % (0.0-10.0); %Neutrophils 43.6 % (42.0-75.0); Hemoglobin 10.7 g/dL (12.0-16.0); Mean Corpuscular HGB CONC 29.8 g/dL (32.0-36.0); Mean Corpuscular Hemoglobin 28.9 pg (27.0-31.0); Mean Corpuscular Volume 96.9 fL (78.0-98.0); Mean Platelet Volume 7.4 fL (7.4-10.4); Platelet Count 356 thou/uL (130-400); RBC Distribution Width 14.4 % (11.5-14.5); White Blood Cell (WBC) Count 7.9 thou/uL (4.8-10.8)
[2022-05-13 06:13] LABS: Anion Gap 14 mmol/L (10-20); BUN (Urea Nitrogen) 15 mg/dL (9.8-20.1); Calc. Creatinine Clearance 71 mL/min (70-130); Calcium 8.7 mg/dL (7.8-10.44); Carbon Dioxide 26 mmol/L (23-31); Chloride 101 mmol/L (98-107); Estimated GFR 65; Glucose 129 mg/dL (83-110); Potassium 4.3 mmol/L (3.5-5.1)
[2022-05-13 06:22] LABS: Sodium 137 mmol/L (136-145)
[2022-05-13] MEDS: Primidone 50 MG TAB PO SCH (08:44)
[2022-05-13] MEDS: Allopurinol 100 MG TAB PO SCH (08:44)
[2022-05-13] MEDS: Multivitamin W/ Minerals 1 TAB PO SCH (08:44)
[2022-05-13] MEDS: Lisinopril 10 MG TAB PO SCH (08:45)
[2022-05-13] MEDS: Aspirin 325 mg Enteric Coated Tablet PO SCH (08:45)
[2022-05-13] MEDS: Cholecalciferol 1,000 UNITS (25 MCG) TAB PO SCH (08:45)
[2022-05-13] MEDS: Venlafaxine HCl XR 75 MG CAP PO SCH (08:45)
[2022-05-13] MEDS: Trospium 20 MG TAB PO SCH ×2 (08:45→20:52)
[2022-05-13] MEDS: Famotidine 20 MG TAB PO SCH (08:45)
[2022-05-13] MEDS: Carvedilol 25 MG TAB PO SCH ×2 (08:45→20:53)
[2022-05-13] MEDS: Polyethylene Glycol OPTH DROP 15 ML BOT EA EYE PRN (08:46)
[2022-05-13] MEDS: Atorvastatin Calcium 10 MG TAB PO SCH (20:53)
[2022-05-14] MEDS: Acetaminophen 325 MG TAB PO PRN ×2 (00:35→09:10)
[2022-05-14] MEDS: Polyethylene Glycol OPTH DROP 15 ML BOT EA EYE PRN ×3 (05:44→21:57)
[2022-05-14] MEDS: Venlafaxine HCl XR 75 MG CAP PO SCH (07:53)
[2022-05-14] MEDS: Multivitamin W/ Minerals 1 TAB PO SCH (07:53)
[2022-05-14] MEDS: Trospium 20 MG TAB PO SCH ×2 (07:53→21:57)
[2022-05-14] MEDS: Cholecalciferol 1,000 UNITS (25 MCG) TAB PO SCH (07:54)
[2022-05-14] MEDS: Aspirin 325 mg Enteric Coated Tablet PO SCH (07:54)
[2022-05-14] MEDS: Allopurinol 100 MG TAB PO SCH (07:54)
[2022-05-14] MEDS: Primidone 50 MG TAB PO SCH (07:55)
[2022-05-14] MEDS: Lisinopril 10 MG TAB PO SCH (07:55)
[2022-05-14] MEDS: Famotidine 20 MG TAB PO SCH (07:55)
[2022-05-14] MEDS: Carvedilol 25 MG TAB PO SCH ×2 (07:55→21:56)
[2022-05-14] MEDS: HumaLOG 300 UNITS/3 ML VIAL SC PRN (12:42)
[2022-05-14] MEDS: Atorvastatin Calcium 10 MG TAB PO SCH (21:56)
[2022-05-15] MEDS: Venlafaxine HCl XR 75 MG CAP PO SCH (09:08)
[2022-05-15] MEDS: Multivitamin W/ Minerals 1 TAB PO SCH (09:08)
[2022-05-15] MEDS: Carvedilol 25 MG TAB PO SCH ×2 (09:08→21:02)
[2022-05-15] MEDS: Primidone 50 MG TAB PO SCH (09:08)
[2022-05-15] MEDS: Lisinopril 10 MG TAB PO SCH (09:09)
[2022-05-15] MEDS: Cholecalciferol 1,000 UNITS (25 MCG) TAB PO SCH (09:09)
[2022-05-15] MEDS: Aspirin 325 mg Enteric Coated Tablet PO SCH (09:09)
[2022-05-15] MEDS: Famotidine 20 MG TAB PO SCH (09:09)
[2022-05-15] MEDS: Allopurinol 100 MG TAB PO SCH (09:09)
[2022-05-15] MEDS: Trospium 20 MG TAB PO SCH ×2 (09:09→21:01)
[2022-05-15] MEDS: Acetaminophen 325 MG TAB PO PRN (09:22)
[2022-05-15] MEDS: Polyethylene Glycol OPTH DROP 15 ML BOT EA EYE PRN (09:23)
[2022-05-15] MEDS: Atorvastatin Calcium 10 MG TAB PO SCH (21:01)
[2022-05-16] MEDS: Acetaminophen 325 MG TAB PO PRN (04:10)
[2022-05-16] MEDS: Famotidine 20 MG TAB PO SCH (08:49)
[2022-05-16] MEDS: Venlafaxine HCl XR 75 MG CAP PO SCH (08:49)
[2022-05-16] MEDS: Multivitamin W/ Minerals 1 TAB PO SCH (08:49)
[2022-05-16] MEDS: Carvedilol 25 MG TAB PO SCH ×2 (08:50→20:28)
[2022-05-16] MEDS: Trospium 20 MG TAB PO SCH ×2 (08:50→20:28)
[2022-05-16] MEDS: Lisinopril 10 MG TAB PO SCH (08:50)
[2022-05-16] MEDS: Allopurinol 100 MG TAB PO SCH (08:50)
[2022-05-16] MEDS: Aspirin 325 mg Enteric Coated Tablet PO SCH (08:50)
[2022-05-16] MEDS: Cholecalciferol 1,000 UNITS (25 MCG) TAB PO SCH (08:51)
[2022-05-16] MEDS: Primidone 50 MG TAB PO SCH (08:51)
[2022-05-16] MEDS: Polyethylene Glycol OPTH DROP 15 ML BOT EA EYE PRN ×2 (08:57→20:29)
[2022-05-16] MEDS: HumaLOG 300 UNITS/3 ML VIAL SC PRN (11:52)
[2022-05-16] MEDS: Atorvastatin Calcium 10 MG TAB PO SCH (20:28)
[2022-05-17] MEDS: Aspirin 325 mg Enteric Coated Tablet PO SCH (08:18)
[2022-05-17] MEDS: Cholecalciferol 1,000 UNITS (25 MCG) TAB PO SCH (08:18)
[2022-05-17] MEDS: Multivitamin W/ Minerals 1 TAB PO SCH (08:18)
[2022-05-17] MEDS: Lisinopril 10 MG TAB PO SCH (08:19)
[2022-05-17] MEDS: Famotidine 20 MG TAB PO SCH (08:19)
[2022-05-17] MEDS: Trospium 20 MG TAB PO SCH ×2 (08:19→21:06)
[2022-05-17] MEDS: Venlafaxine HCl XR 75 MG CAP PO SCH (08:19)
[2022-05-17] MEDS: Allopurinol 100 MG TAB PO SCH (08:20)
[2022-05-17] MEDS: Primidone 50 MG TAB PO SCH (08:20)
[2022-05-17] MEDS: Carvedilol 25 MG TAB PO SCH ×2 (08:20→21:07)
[2022-05-17] MEDS: Acetaminophen 325 MG TAB PO PRN (08:41)
[2022-05-17] MEDS: Polyethylene Glycol OPTH DROP 15 ML BOT EA EYE PRN ×2 (08:46→21:08)
[2022-05-17] MEDS: Atorvastatin Calcium 10 MG TAB PO SCH (21:06)
[2022-05-18 05:53] VITALS: BMI 32.1
[2022-05-18] MEDS: Polyethylene Glycol OPTH DROP 15 ML BOT EA EYE PRN ×3 (08:30→22:03)
[2022-05-18] MEDS: Multivitamin W/ Minerals 1 TAB PO SCH (08:31)
[2022-05-18] MEDS: Cholecalciferol 1,000 UNITS (25 MCG) TAB PO SCH (08:31)
[2022-05-18] MEDS: Venlafaxine HCl XR 75 MG CAP PO SCH (08:31)
[2022-05-18] MEDS: Aspirin 325 mg Enteric Coated Tablet PO SCH (08:31)
[2022-05-18] MEDS: Trospium 20 MG TAB PO SCH ×2 (08:31→21:58)
[2022-05-18] MEDS: Lisinopril 10 MG TAB PO SCH (08:32)
[2022-05-18] MEDS: Carvedilol 25 MG TAB PO SCH ×2 (08:32→21:58)
[2022-05-18] MEDS: Allopurinol 100 MG TAB PO SCH (08:32)
[2022-05-18] MEDS: Famotidine 20 MG TAB PO SCH (08:32)
[2022-05-18] MEDS: Primidone 50 MG TAB PO SCH (08:34)
[2022-05-18] MEDS: HumaLOG 300 UNITS/3 ML VIAL SC PRN (13:03)
[2022-05-18] MEDS: Atorvastatin Calcium 10 MG TAB PO SCH (21:58)
[2022-05-19] MEDS: Polyethylene Glycol OPTH DROP 15 ML BOT EA EYE PRN ×2 (08:19→21:22)
[2022-05-19] MEDS: Aspirin 325 mg Enteric Coated Tablet PO SCH (08:20)
[2022-05-19] MEDS: Primidone 50 MG TAB PO SCH (08:20)
[2022-05-19] MEDS: Trospium 20 MG TAB PO SCH ×2 (08:22→21:22)
[2022-05-19] MEDS: Lisinopril 10 MG TAB PO SCH (08:22)
[2022-05-19] MEDS: Multivitamin W/ Minerals 1 TAB PO SCH (08:22)
[2022-05-19] MEDS: Venlafaxine HCl XR 75 MG CAP PO SCH (08:22)
[2022-05-19] MEDS: Carvedilol 25 MG TAB PO SCH ×2 (08:22→21:22)
[2022-05-19] MEDS: Cholecalciferol 1,000 UNITS (25 MCG) TAB PO SCH (08:23)
[2022-05-19] MEDS: Allopurinol 100 MG TAB PO SCH (08:23)
[2022-05-19] MEDS: Famotidine 20 MG TAB PO SCH (08:23)
[2022-05-19] MEDS: HumaLOG 300 UNITS/3 ML VIAL SC PRN (12:38)
[2022-05-19] MEDS: Atorvastatin Calcium 10 MG TAB PO SCH (21:22)
[2022-05-20] MEDS: HumaLOG 300 UNITS/3 ML VIAL SC PRN (06:40)
[2022-05-20] MEDS: Venlafaxine HCl XR 75 MG CAP PO SCH (08:41)
[2022-05-20] MEDS: Multivitamin W/ Minerals 1 TAB PO SCH (08:41)
[2022-05-20] MEDS: Cholecalciferol 1,000 UNITS (25 MCG) TAB PO SCH (08:42)
[2022-05-20] MEDS: Trospium 20 MG TAB PO SCH ×2 (08:42→21:06)
[2022-05-20] MEDS: Aspirin 325 mg Enteric Coated Tablet PO SCH (08:42)
[2022-05-20] MEDS: Primidone 50 MG TAB PO SCH (08:42)
[2022-05-20] MEDS: Carvedilol 25 MG TAB PO SCH ×2 (08:43→21:06)
[2022-05-20] MEDS: Allopurinol 100 MG TAB PO SCH (08:43)
[2022-05-20] MEDS: Lisinopril 10 MG TAB PO SCH (08:43)
[2022-05-20] MEDS: Famotidine 20 MG TAB PO SCH (08:43)
[2022-05-20] MEDS: Polyethylene Glycol OPTH DROP 15 ML BOT EA EYE PRN ×2 (08:44→21:06)
[2022-05-20] MEDS: Atorvastatin Calcium 10 MG TAB PO SCH (21:06)
[2022-05-21] MEDS: Aspirin 325 mg Enteric Coated Tablet PO SCH (08:59)
[2022-05-21] MEDS: Venlafaxine HCl XR 75 MG CAP PO SCH (08:59)
[2022-05-21] MEDS: Trospium 20 MG TAB PO SCH ×2 (08:59→20:38)
[2022-05-21] MEDS: Multivitamin W/ Minerals 1 TAB PO SCH (08:59)
[2022-05-21] MEDS: Lisinopril 10 MG TAB PO SCH (09:00)
[2022-05-21] MEDS: Primidone 50 MG TAB PO SCH (09:00)
[2022-05-21] MEDS: Famotidine 20 MG TAB PO SCH (09:00)
[2022-05-21] MEDS: Cholecalciferol 1,000 UNITS (25 MCG) TAB PO SCH (09:00)
[2022-05-21] MEDS: Allopurinol 100 MG TAB PO SCH (09:00)
[2022-05-21] MEDS: Carvedilol 25 MG TAB PO SCH ×2 (09:00→20:38)
[2022-05-21 09:24] LABS: #Basophils 0.1 thou/uL (0.0-0.2); #Eosinphils 0.3 thou/uL (0.0-0.7); #Lymphocytes 3.1 thou/uL (1.20-3.40); #Monocytes 0.7 thou/uL (0.11-0.59); %Basophils 0.7 % (0.0-1.0); %Eosinophils 3.7 % (0.0-10.0); %Lymphocytes 37.9 % (21.0-51.0); %Monocytes 8.5 % (0.0-10.0); %Neutrophils 49.2 % (42.0-75.0); Hemoglobin 11.7 g/dL (12.0-16.0); Mean Corpuscular HGB CONC 29.6 g/dL (32.0-36.0); Mean Corpuscular Hemoglobin 29.2 pg (27.0-31.0); Mean Corpuscular Volume 98.7 fL (78.0-98.0); Mean Platelet Volume 7.4 fL (7.4-10.4); Platelet Count 343 thou/uL (130-400); RBC Distribution Width 14.8 % (11.5-14.5); Red Blood Cell (RBC) Count 4.02 mill/uL (4.20-5.40); White Blood Cell (WBC) Count 8.1 thou/uL (4.8-10.8)
[2022-05-21 09:34] LABS: Anion Gap 19 mmol/L (10-20); BUN (Urea Nitrogen) 17 mg/dL (9.8-20.1); Calc. Creatinine Clearance 48 mL/min (70-130); Calcium 9.2 mg/dL (7.8-10.44); Carbon Dioxide 22 mmol/L (23-31); Chloride 99 mmol/L (98-107); Estimated GFR 45; Glucose 261 mg/dL (83-110); Potassium 4.4 mmol/L (3.5-5.1); Sodium 136 mmol/L (136-145)
[2022-05-21] MEDS: HumaLOG 300 UNITS/3 ML VIAL SC PRN (11:11)
[2022-05-21] MEDS: Polyethylene Glycol OPTH DROP 15 ML BOT EA EYE PRN ×2 (11:12→20:39)
[2022-05-21] MEDS: Atorvastatin Calcium 10 MG TAB PO SCH (20:38)
[2022-05-22] MEDS: Polyethylene Glycol OPTH DROP 15 ML BOT EA EYE PRN ×2 (01:09→06:00)
[2022-05-22] MEDS: HumaLOG 300 UNITS/3 ML VIAL SC PRN ×2 (06:01→12:22)
[2022-05-22] MEDS: Carvedilol 25 MG TAB PO SCH (09:06)
[2022-05-22] MEDS: Lisinopril 10 MG TAB PO SCH (09:06)
[2022-05-22] MEDS: Venlafaxine HCl XR 75 MG CAP PO SCH (09:06)
[2022-05-22] MEDS: Allopurinol 100 MG TAB PO SCH (09:07)
[2022-05-22] MEDS: Famotidine 20 MG TAB PO SCH (09:07)
[2022-05-22] MEDS: Multivitamin W/ Minerals 1 TAB PO SCH (09:07)
[2022-05-22] MEDS: Trospium 20 MG TAB PO SCH (09:08)
[2022-05-22] MEDS: Cholecalciferol 1,000 UNITS (25 MCG) TAB PO SCH (09:08)
[2022-05-22] MEDS: Aspirin 325 mg Enteric Coated Tablet PO SCH (09:08)
[2022-05-22] MEDS: Primidone 50 MG TAB PO SCH (09:09)
[2022-05-22 13:10] VITALS: BP 116/54; TEMP 98.3
== END 2022-05-22 12:55 | DRG 690 ==
LOC: NAV ACUTE 18:23
PROVIDERS: ADMIT Family Medicine; ATTEND Family Medicine
DX: N39.0 Urinary tract infection, site not specified (principal); N17.9 Acute kidney failure, unspecified; R78.81 Bacteremia; Z20.822 Contact with and (suspected) exposure to COVID-19; I25.10 Atherosclerotic heart disease of native coronary artery without angina pectoris; E66.9 Obesity, unspecified; E11.22 Type 2 diabetes mellitus with diabetic chronic kidney disease; I12.9 Hypertensive chronic kidney disease with stage 1 through stage 4 chronic kidney disease, or unspecified chronic kidney disease; Z66 Do not resuscitate; K76.89 Other specified diseases of liver; D63.1 Anemia in chronic kidney disease; E78.2 Mixed hyperlipidemia; D73.89 Other diseases of spleen; N18.32 Chronic kidney disease, stage 3b; R53.81 Other malaise; M19.90 Unspecified osteoarthritis, unspecified site; B96.20 Unspecified Escherichia coli [E. coli] as the cause of diseases classified elsewhere; B96.4 Proteus (mirabilis) (morganii) as the cause of diseases classified elsewhere; Z79.4 Long term (current) use of insulin; Z91.048 Other nonmedicinal substance allergy status; Z88.1 Allergy status to other antibiotic agents; Z88.0 Allergy status to penicillin; Z88.8 Allergy status to other drugs, medicaments and biological substances; Z79.899 Other long term (current) drug therapy; Z79.82 Long term (current) use of aspirin; Z90.710 Acquired absence of both cervix and uterus; Z90.89 Acquired absence of other organs; Z95.5 Presence of coronary angioplasty implant and graft
CPT/HCPCS: 36415; 36416; 74170; 80048; 80053; 85025; J1815; Q9967; U0003; U0005